=== PATIENT | male | born 1950 | race Caucasian/White ===

== ENCOUNTER 2020-04-23 13:49 | Day surgery (SDC) | payer MEDICARE, MEDICAID, SELFPAY ==
--- NOTE | 2020-04-23 12:53 | SUR.PREOP ---
Spoke with RN in IMU. Informed of Afib RVR status- RN looked back at records and patient converted at noon. Patricia Aldrich on the floor with RN- orders for Stat EKG. Dr Harding made aware.
--- NOTE | 2020-04-23 14:06 | P.PNAN_ITS ---
Anes - Initial Pre Proc Eval Procedure: Operation Date: 04/23/20 13:30 Proposed Procedures p Esophagogastroduodenoscopy - Warner Bailon MD Date/Time: 04/23/20 14:06 Surgeon: Warner Bailon MD Pre Op Diagnosis: Food Bolus Patient Data Age: 70 Gender: M Height: Weight: Allergies Allergy/AdvReac Type Severity Reaction Status Date / Time Penicillins Allergy Intermediate Rash Verified 04/23/20 14:06 Patient hx anesthesia problems: none Family hx anesthesia problems: none [facility] Past Medical History Medical History (Updated 04/23/20 @ 14:07 by Juanjo Harding MD) Gastroesophageal reflux disease Seizure Anes - Eval Final PreProcedure Day of Procedure 04/23/20 14:06 Patient weight: normal Heart: regular rate and rhythm Lungs: clear to auscultation and normal air movement Airway: Mallampati scale class II Neurological: alert and oriented Last oral intake: >/= 8 hours ASA classification: III Emergent: no Anesthetic plan: proceed Anesthesia type and monitoring: general GIVS and ETT Informed Consent: The patient's anesthetic plan and its attendant risks and benefits were discussed with the patient/family/POA. Questions were solicited and answers provided to the satisfaction of the patient/family/POA.
[2020-04-23 14:08] VITALS: BMI 20.4
[2020-04-23 14:11] VITALS: BP 154/85; PULSE 96; RESP 18; TEMP 36.9; O2SAT 96
[2020-04-23] MEDS: LACTATED RINGERS 1,000 ML 150 ML IV CONT (14:16)
--- NOTE | 2020-04-23 14:19 | WPDGICN ---
Assessment and Plan Assessment and plan (1) Food impaction of esophagus: Code(s): T18.128A - Food in esophagus causing other injury, initial encounter Status: Acute Assessment and Plan: will proceed with urgent EGD, more recommendations after egd (2) Gastroesophageal reflux disease: Code(s): K21.9 - Gastro-esophageal reflux disease without esophagitis Status: Acute Assessment and Plan: on pepcid and omeprazole at home (3) Seizure: Code(s): R56.9 - Unspecified convulsions Status: Acute Assessment and Plan: using dilantin, no recent episodes GI Consult Note Consult date/time: 04/23/20 14:19 Reason for consult: food bolus HPI: Venkatesh Frey is a 70 year old male who I met in [place] in 2017 when had dysphagia, EGD with ring that was dilated. He is here with food bolus after eating ham sandwich last night, still unable to swallow and spitting up salive. He went to [facility] and now is here to undergo EGD. Review of Systems Constitutional: Constitutional: Denies headache(s) and Denies weakness Eyes: Eyes: Denies blurry vision ENT: Reports Normal hearing present, Denies headache(s) and Denies neck pain Cardiovascular: Cardiovascular: Denies chest pain and Denies dyspnea Respiratory: Respiratory: Denies dyspnea Gastrointestinal: Gastrointestinal: Reports no additional gastrointestinal complaints Genitourinary: Genitourinary: Denies dysuria Musculoskeletal: Musculoskeletal: Denies neck pain Integumentary/Breasts: Skin/Breast: Denies dry skin Neurologic: Reports Normal hearing present, Denies headache(s) and Denies weakness Psychiatric: Psychiatric: Denies anxiety Endocrine: Endocrine: Denies change in body appearance Hematologic/Lymphatic: Hematologic/Lymphatic: Denies easy bleeding Allergic/Immunologic: Allergic/Immunologic: Denies urticaria PMFSH Past Medical History Medical History (Updated 04/23/20 @ 14:20 by Warner Bailon MD) Food impaction of esophagus Gastroesophageal reflux disease Seizure Meds Home Medications and Allergies Home Medications Medication Instructions Recorded Confirmed Type famotidine 40 mg PO DAILY 04/23/20 04/23/20 History linaclotide [Linzess] 72 mcg PO DAILY 04/23/20 04/23/20 History omeprazole 20 mg PO DAILY 04/23/20 04/23/20 History phenytoin sodium extended 100 mg PO DAILY 04/23/20 04/23/20 History Allergies Allergy/AdvReac Type Severity Reaction Status Date / Time Penicillins Allergy Intermediate Rash Verified 04/23/20 14:06 Vital Signs Vital Signs - 24 hr 04/23/20 14:11 Temperature 98.4 F Pulse Rate 96 Respiratory Rate 18 Blood Pressure 154/85 H Pulse Oximetry 96 Exam Const: General: comfortable and no acute distress HENMT: General nose exam: Normal nares present Eyes: General: appearance normal, both eyes and all related structures Neck: Neck: no JVD Resp: Auscultation: clear to auscultation bilaterally Cardio: Rate: regular rate Rhythm: regular rhythm GI: Inspection: non-distended GI Palp: Yes Soft to palpation Skin: General skin exam: normal color Neuro: General: gait normal Speech: normal speech Extrem: General: normal to inspection Psych: Mental Status: mental status grossly normal
[2020-04-23 14:34] VITALS: BP 103/66; PULSE 79; RESP 22; O2SAT 97
[2020-04-23 14:44] VITALS: BP 117/60; PULSE 80; RESP 18; O2SAT 96
[2020-04-23 14:54] VITALS: BP 136/76; PULSE 76; RESP 20; O2SAT 97
== END 2020-04-23 15:05 | disposition home or self-care (01) ==
PROVIDERS: PCP Family Medicine; Visit Provider Internal Medicine Gastroenterology
PROC: 0DJ08ZZ Inspection of Upper Intestinal Tract, Via Natural or Artificial Opening Endoscopic (ICD-10-PCS; CPT 43235; principal; 2020-04-23 13:30)
DX: T18.128A Food in esophagus causing other injury, initial encounter (principal); K22.2 Esophageal obstruction; K44.9 Diaphragmatic hernia without obstruction or gangrene; K21.9 Gastro-esophageal reflux disease without esophagitis; G40.909 Epilepsy, unspecified, not intractable, without status epilepticus
CPT/HCPCS: 43249; C1726; J2704; J7120

== ENCOUNTER 2020-05-27 01:10 | Day surgery (SDC) | payer MEDICARE, MEDICAID, SELFPAY ==
[2020-05-19 13:43] VITALS: BMI 22.0
--- NOTE | 2020-05-19 13:49 | PC.NURSE ---
PT VOICED CONCERNS ABOUT MAKING THE COVID SWAB APPOINTMENT. REITERATED TO PATIENT NUMEROUS TIMES THAT THE PROCEDURE WILL NOT BE ABLE TO BE COMPLETED IF COVID SWAB NOT COMPLETED. PT WANTS TO HAVE SWAB COMPLETED AT [facility]. REFERRED PATIENT TO DR TREVIZO OFFICE FOR ORDER.
--- NOTE | 2020-05-27 11:48 | PM.HPGS ---
History of Present Illness History of Present Illness Consent: Risks, benefits, and alternatives have been discussed and questions answered. Patient agrees to proceed with procedure. Chief complaint: Schatzki's Ring/ Dysphagia Narrative: Venkatesh Frey Jr. is a 70 year old male with history of food bolus last month due to a ring that was dilated Review of Systems Constitutional: Constitutional: Denies headache(s) and Denies weakness Eyes: Eyes: Denies blurry vision ENT: Reports Normal hearing present, Denies headache(s) and Denies neck pain Cardiovascular: Cardiovascular: Denies chest pain and Denies dyspnea Respiratory: Respiratory: Denies dyspnea Gastrointestinal: Gastrointestinal: Reports no additional gastrointestinal complaints Genitourinary: Genitourinary: Denies dysuria Musculoskeletal: Musculoskeletal: Denies neck pain Integumentary/Breasts: Skin/Breast: Denies dry skin Neurologic: Reports Normal hearing present, Denies headache(s) and Denies weakness Psychiatric: Psychiatric: Denies anxiety Endocrine: Endocrine: Denies change in body appearance Hematologic/Lymphatic: Hematologic/Lymphatic: Denies easy bleeding Allergic/Immunologic: Allergic/Immunologic: Denies urticaria PMFSH Past Medical History Medical History (Updated 05/27/20 @ 12:01 by Warner Bailon MD) Dysphagia Food impaction of esophagus Gastroesophageal reflux disease LLQ abdominal pain Seizure Meds Home Medications and Allergies Home Medications Medication Instructions Recorded Confirmed Type famotidine 40 mg PO DAILY 04/23/20 04/23/20 History linaclotide [Linzess] 72 mcg PO DAILY 04/23/20 04/23/20 History omeprazole 20 mg PO DAILY 04/23/20 04/23/20 History phenytoin sodium extended 100 mg PO DAILY 04/23/20 04/23/20 History Allergies Allergy/AdvReac Type Severity Reaction Status Date / Time Penicillins Allergy Intermediate Rash Verified 05/27/20 11:55 Exam Const: General: comfortable and no acute distress HENMT: General nose exam: Normal nares present Eyes: General: appearance normal, both eyes and all related structures Neck: Neck: no JVD Resp: Auscultation: clear to auscultation bilaterally Cardio: Rate: regular rate Rhythm: regular rhythm GI: Inspection: non-distended GI Palp: Yes Soft to palpation Skin: General skin exam: normal color Neuro: General: gait normal Speech: normal speech Extrem: General: normal to inspection Psych: Mental Status: mental status grossly normal Assessment and Plan Assessment and plan (1) Dysphagia: Code(s): R13.10 - Dysphagia, unspecified Status: Acute Assessment and Plan: will reassess again with egd to see if may require further dilation (2) Food impaction of esophagus: Code(s): T18.128A - Food in esophagus causing other injury, initial encounter Status: Acute (3) LLQ abdominal pain: Code(s): R10.32 - Left lower quadrant pain Status: Acute Assessment and Plan: he has been complaining of intermittent pain in llq recently, also constipation, he thinks that may have flare up of diverticulitis but denies fever, chills or blood in stools. He already had colonoscopy. Will give a trial of flagyl for 5 days
[2020-05-27 11:56] VITALS: BP 178/84; PULSE 76; RESP 18; TEMP 36.5; O2SAT 100; BMI 20.7
[2020-05-27] MEDS: LACTATED RINGERS 1,000 ML 150 ML IV CONT (12:03)
--- NOTE | 2020-05-27 12:03 | WPDANESEPPF ---
Anes - Initial Pre Proc Eval Procedure: Operation Date: 05/27/20 13:45 Proposed Procedures p Esophagogastroduodenoscopy - Warner Bailon MD Date/Time: 05/27/20 12:03 Surgeon: Warner Bailon MD Pre Op Diagnosis: Schatzki's Ring/ Dysphagia Patient Data Age: 70 Gender: M Height: 5 ft 5 in Weight: 56.7 kg Last Vital Signs Temp 97.7 F 05/27/20 11:56 Pulse 76 05/27/20 11:56 Resp 18 05/27/20 11:56 BP 178/84 H 05/27/20 11:56 Pulse Ox 100 05/27/20 11:56 Allergies Allergy/AdvReac Type Severity Reaction Status Date / Time Penicillins Allergy Intermediate Rash Verified 05/27/20 11:55 Home Medications Medication Instructions Recorded Confirmed Type famotidine 40 mg PO DAILY 04/23/20 04/23/20 History linaclotide [Linzess] 72 mcg PO DAILY 04/23/20 04/23/20 History omeprazole 20 mg PO DAILY 04/23/20 04/23/20 History phenytoin sodium extended 100 mg PO DAILY 04/23/20 04/23/20 History metronidazole 500 mg tablet 500 mg PO Q8H 5 Days #15 tablet 05/27/20 Rx Patient hx anesthesia problems: none Family hx anesthesia problems: none [facility] Past Medical History Medical History (Updated 05/27/20 @ 12:01 by Warner Bailon MD) Dysphagia Food impaction of esophagus Gastroesophageal reflux disease LLQ abdominal pain Seizure Anes - Eval Final PreProcedure Day of Procedure 05/27/20 12:03 Patient weight: normal Heart: regular rate and rhythm Lungs: clear to auscultation Airway: Mallampati scale class II Neurological: alert and oriented Last oral intake: >/= 8 hours ASA classification: III Emergent: no Anesthetic plan: proceed Anesthesia type and monitoring: general GIVS and standard monitoring Informed Consent: The patient's anesthetic plan and its attendant risks and benefits were discussed with the patient/family/POA. Questions were solicited and answers provided to the satisfaction of the patient/family/POA.
[2020-05-27 12:24] VITALS: BP 118/73; PULSE 70; RESP 17; O2SAT 96
[2020-05-27 12:34] VITALS: BP 122/80; PULSE 64; RESP 18; O2SAT 97
[2020-05-27 12:44] VITALS: BP 134/89; PULSE 71; RESP 18; O2SAT 99
== END 2020-05-27 13:04 | disposition home or self-care (01) ==
PROVIDERS: PCP Family Medicine; Visit Provider Internal Medicine Gastroenterology
PROC: 0DJ08ZZ Inspection of Upper Intestinal Tract, Via Natural or Artificial Opening Endoscopic (ICD-10-PCS; CPT 43235; principal; 2020-05-27 13:45)
DX: K22.2 Esophageal obstruction (principal); K44.9 Diaphragmatic hernia without obstruction or gangrene; T18.128A Food in esophagus causing other injury, initial encounter; X58.XXXA Exposure to other specified factors, initial encounter; K21.9 Gastro-esophageal reflux disease without esophagitis; F32.9 Major depressive disorder, single episode, unspecified
CPT/HCPCS: 43249; C1726; J2704; J7120

== ENCOUNTER 2023-10-12 01:29 | Day surgery (SDC) | payer MEDICARE, MEDICAID, SELFPAY ==
[2023-09-27 11:48] VITALS: BMI 22.0
--- NOTE | 2023-10-10 11:21 | SUR.PREOP ---
Patient called regarding upcoming procedure. Message left on pt's voicemail regarding appointment times.
[2023-10-12 12:30] VITALS: BP 155/79; PULSE 75; RESP 18; TEMP 36.3; O2SAT 100
[2023-10-12] MEDS: LACTATED RINGERS 1,000 ML 150 ML IV CONT (12:37)
--- NOTE | 2023-10-12 13:17 | P.PNAN_ITS ---
Anes - Initial Pre Proc Eval Procedure: Operation Date: 10/12/23 14:00 Proposed Procedures p Esophagogastroduodenoscopy - Warner Bailon MD Date/Time: 10/12/23 13:17 Surgeon: Warner Bailon MD Pre Op Diagnosis: Esophageal stricture Patient Data Age: 73 Gender: M Height: 1.65 m Weight: 57.7 kg Last Vital Signs Temp 97.3 F L 10/12/23 12:30 Pulse 75 10/12/23 12:30 Resp 18 10/12/23 12:30 BP 155/79 H 10/12/23 12:30 Pulse Ox 100 10/12/23 12:30 O2 Del Method Room Air 10/12/23 12:30 Allergies Allergy/AdvReac Type Severity Reaction Status Date / Time Penicillins Allergy Intermediate Rash Verified 10/12/23 12:28 fenoprofen [From Nalfon] Allergy Rash Verified 10/12/23 12:28 Home Medications Medication Instructions Recorded Confirmed Type famotidine 40 mg tablet 40 mg PO DAILY 04/23/20 10/12/23 History omeprazole 20 mg capsule,delayed 20 mg PO DAILY 04/23/20 10/12/23 History release phenytoin sodium extended 100 mg 100 mg PO DAILY 04/23/20 10/12/23 History capsule aspirin 81 mg capsule 81 mg PO DAILY 09/27/23 10/12/23 History olmesartan 20 mg tablet 20 mg PO DAILY 09/27/23 10/12/23 History Patient hx anesthesia problems: none Family hx anesthesia problems: none Results Review: All pre-operative results and documents have been reviewed as part of the pre- operative evaluation. [facility] Past Medical History Medical History (Updated 05/27/20 @ 12:01 by Warner Bailon MD) Dysphagia Food impaction of esophagus Gastroesophageal reflux disease LLQ abdominal pain Seizure Social History Social History Smoking status: Never smoker Alcohol intake: current Drinks per week: 1 Substance use type: does not use Living arrangements: alone Spiritual care concerns: No Anes - Eval Final PreProcedure Day of Procedure 10/12/23 13:17 Patient weight: normal Heart: regular rate and rhythm Lungs: clear to auscultation Airway: Mallampati scale Neurological: alert and oriented Last oral intake: >/= 8 hours ASA classification: III Emergent: no Anesthetic plan: proceed Anesthesia type and monitoring: general GIVS and standard monitoring Results Review: All pre-operative results and documents have been reviewed as part of the pre- operative evaluation. Informed Consent: The patient's anesthetic plan and its attendant risks and benefits were discussed with the patient/family/POA. Questions were solicited and answers provided to the satisfaction of the patient/family/POA.
--- NOTE | 2023-10-12 13:57 | PM.HPGS ---
History of Present Illness History of Present Illness Consent: Risks, benefits, and alternatives have been discussed and questions answered. Patient agrees to proceed with procedure. Chief complaint: Esophageal stricture Narrative: Venkatesh Frey Jr. is a 73 year old male with dysphagia again, last EGD 2019 with ring that was dilated with balloon up to 15 mm, using famotidine daiyl and omeprazole as needed. Review of Systems Constitutional: Constitutional: Denies headache(s) and Denies weakness Eyes: Eyes: Denies blurry vision ENT: Reports Normal hearing present, Denies headache(s) and Denies neck pain Cardiovascular: Cardiovascular: Denies chest pain and Denies dyspnea Respiratory: Respiratory: Denies dyspnea Gastrointestinal: Gastrointestinal: Reports no additional gastrointestinal complaints Genitourinary: Genitourinary: Denies dysuria Musculoskeletal: Musculoskeletal: Denies neck pain Integumentary/Breasts: Skin/Breast: Denies dry skin Neurologic: Reports Normal hearing present, Denies headache(s) and Denies weakness Psychiatric: Psychiatric: Denies anxiety Endocrine: Endocrine: Denies change in body appearance Hematologic/Lymphatic: Hematologic/Lymphatic: Denies easy bleeding Allergic/Immunologic: Allergic/Immunologic: Denies urticaria PMF Past Medical History Medical History (Updated 05/27/20 @ 12:01 by Warner Bailon MD) Dysphagia Food impaction of esophagus Gastroesophageal reflux disease LLQ abdominal pain Seizure Social History Social History Smoking status: Never smoker Alcohol intake: current Drinks per week: 1 Substance use type: does not use Living arrangements: alone Spiritual care concerns: No Meds Home Medications and Allergies Home Medications Medication Instructions Recorded Confirmed Type famotidine 40 mg tablet 40 mg PO DAILY 04/23/20 10/12/23 History omeprazole 20 mg capsule,delayed 20 mg PO DAILY 04/23/20 10/12/23 History release phenytoin sodium extended 100 mg 100 mg PO DAILY 04/23/20 10/12/23 History capsule aspirin 81 mg capsule 81 mg PO DAILY 09/27/23 10/12/23 History olmesartan 20 mg tablet 20 mg PO DAILY 09/27/23 10/12/23 History Allergies Allergy/AdvReac Type Severity Reaction Status Date / Time Penicillins Allergy Intermediate Rash Verified 10/12/23 12:28 fenoprofen [From Nalfon] Allergy Rash Verified 10/12/23 12:28 Vital Signs Vital Signs - 24 hr 10/12/23 12:30 Temperature 97.3 F L Pulse Rate 75 Respiratory Rate 18 Blood Pressure 155/79 H Pulse Oximetry 100 Oxygen Delivery Room Air Exam Const: General: comfortable and no acute distress HENMT: Face/Nose/Sinus: Normal nares present Eyes: General: appearance normal, both eyes and all related structures Neck: Neck: no JVD Resp: Auscultation: clear to auscultation bilaterally Cardio: Rate: regular rate Rhythm: regular rhythm GI: Inspection: non-distended GI Palp: Yes Soft to palpation Skin: General skin exam: normal color Neuro: General: gait normal Speech: normal speech Extrem: General: normal to inspection Psych: Mental Status: mental status grossly normal Assessment and Plan Assessment and plan (1) Dysphagia: Code(s): R13.10 - Dysphagia, unspecified Status: Acute Assessment and Plan: egd, probably will need dilatation again
[2023-10-12 14:11] VITALS: BP 80/52; PULSE 66; RESP 18; O2SAT 95
[2023-10-12 14:21] VITALS: BP 96/61; PULSE 75; RESP 20; O2SAT 98
[2023-10-12 14:31] VITALS: BP 130/75; PULSE 66; RESP 20; O2SAT 100
== END 2023-10-12 14:57 | disposition home or self-care (01) ==
PROVIDERS: PCP Family Medicine; Visit Provider Internal Medicine Gastroenterology
PROC: 0DJ08ZZ Inspection of Upper Intestinal Tract, Via Natural or Artificial Opening Endoscopic (ICD-10-PCS; CPT 43235; principal; 2023-10-12 14:00)
DX: K22.2 Esophageal obstruction (principal); K44.9 Diaphragmatic hernia without obstruction or gangrene; K21.9 Gastro-esophageal reflux disease without esophagitis; G40.909 Epilepsy, unspecified, not intractable, without status epilepticus; Z79.82 Long term (current) use of aspirin
CPT/HCPCS: 43249; C1726; J2704; J7120

== ENCOUNTER 2024-03-01 00:51 | Day surgery (SDC) | payer MEDICARE, MEDICAID, SELFPAY ==
[2024-02-10 14:39] VITALS: BMI 21.6
[2024-03-01 11:47] VITALS: BP 152/66; PULSE 66; RESP 18; TEMP 36.5; O2SAT 100
[2024-03-01] MEDS: LACTATED RINGERS 1,000 ML 150 ML IV CONT (12:07)
--- NOTE | 2024-03-01 12:11 | WPDANESEPPF ---
Anes - Initial Pre Proc Eval Procedure: Operation Date: 03/01/24 13:30 Proposed Procedures p Esophagogastroduodenoscopy - Warner Bailon MD Date/Time: 03/01/24 12:11 Surgeon: Warner Bailon MD Pre Op Diagnosis: Esophageal stricture Patient Data Age: 74 Gender: M Height: 1.65 m Weight: 55.6 kg Last Vital Signs Temp 97.7 F 03/01/24 11:47 Pulse 66 03/01/24 11:47 Resp 18 03/01/24 11:47 BP 152/66 H 03/01/24 11:47 Pulse Ox 100 03/01/24 11:47 O2 Del Method Room Air 03/01/24 11:47 Allergies Allergy/AdvReac Type Severity Reaction Status Date / Time Penicillins Allergy Intermediate Rash Verified 10/12/23 12:28 bee venom protein (honey bee) Allergy Anaphylaxis Verified 02/10/24 14:37 [bees] fenoprofen [From Nalfon] Allergy Rash Verified 10/12/23 12:28 Home Medications Medication Instructions Recorded Confirmed Type famotidine 40 mg tablet 40 mg PO DAILY 04/23/20 02/10/24 History omeprazole 20 mg capsule,delayed 20 mg PO DAILY PRN Heartburn 04/23/20 02/10/24 History release phenytoin sodium extended 100 mg 100 mg PO EVERY OTHER DAY 04/23/20 02/10/24 History capsule aspirin 81 mg capsule 81 mg PO DAILY 09/27/23 02/10/24 History olmesartan 20 mg tablet 20 mg PO DAILY 09/27/23 02/10/24 History Patient hx anesthesia problems: none Family hx anesthesia problems: none Results Review: All pre-operative results and documents have been reviewed as part of the pre-operative evaluation. [facility] Past Medical History Medical History (Updated 05/27/20 @ 12:01 by Warner Bailon MD) Dysphagia Food impaction of esophagus Gastroesophageal reflux disease LLQ abdominal pain Seizure Social History Social History Smoking status: Never smoker Smokeless tobacco user: chewing tobacco Alcohol intake: current Drinks per week: 1 Substance use type: does not use Living arrangements: with family Spiritual care concerns: No Anes - Eval Final PreProcedure Day of Procedure 03/01/24 12:11 Patient weight: normal Heart: regular rate and rhythm Lungs: clear to auscultation Airway: Mallampati scale class II Neurological: alert and oriented Last oral intake: >/= 8 hours ASA classification: III Emergent: no Anesthetic plan: proceed Anesthesia type and monitoring: general GIVS and standard monitoring Results Review: All pre-operative results and documents have been reviewed as part of the pre-operative evaluation. Informed Consent: The patient's anesthetic plan and its attendant risks and benefits were discussed with the patient/family/POA. Questions were solicited and answers provided to the satisfaction of the patient/family/POA.
--- NOTE | 2024-03-01 13:20 | PM.HPGS ---
History of Present Illness History of Present Illness Consent: Risks, benefits, and alternatives have been discussed and questions answered. Patient agrees to proceed with procedure. Chief complaint: Esophageal stricture Narrative: Venkatesh Frey Jr. is a 74 year old male with known history of esophageal stricture, last time dilated 10/2023 which helped, time to do another one. Review of Systems Review of Systems: All systems reviewed & are unremarkable except as noted in HPI and below PMFSH Past Medical History Medical History (Updated 03/01/24 @ 13:21 by Warner Bailon MD) Dysphagia Esophageal stricture Food impaction of esophagus Gastroesophageal reflux disease LLQ abdominal pain Seizure Social History Social History Smoking status: Never smoker Smokeless tobacco user: chewing tobacco Alcohol intake: current Drinks per week: 1 Substance use type: does not use Living arrangements: with family Spiritual care concerns: No Meds Home Medications and Allergies Home Medications Medication Instructions Recorded Confirmed Type famotidine 40 mg tablet 40 mg PO DAILY 04/23/20 02/10/24 History omeprazole 20 mg capsule,delayed 20 mg PO DAILY PRN Heartburn 04/23/20 02/10/24 History release phenytoin sodium extended 100 mg 100 mg PO EVERY OTHER DAY 04/23/20 02/10/24 History capsule aspirin 81 mg capsule 81 mg PO DAILY 09/27/23 02/10/24 History olmesartan 20 mg tablet 20 mg PO DAILY 09/27/23 02/10/24 History Allergies Allergy/AdvReac Type Severity Reaction Status Date / Time Penicillins Allergy Intermediate Rash Verified 10/12/23 12:28 bee venom protein (honey bee) Allergy Anaphylaxis Verified 02/10/24 14:37 [bees] fenoprofen [From Nalfon] Allergy Rash Verified 10/12/23 12:28 Vital Signs Vital Signs - 24 hr 03/01/24 11:47 Temperature 97.7 F Pulse Rate 66 Respiratory Rate 18 Blood Pressure 152/66 H Pulse Oximetry 100 Oxygen Delivery Room Air Exam Const: General: comfortable and no acute distress HENMT: Face/Nose/Sinus: Normal nares present Eyes: General: appearance normal, both eyes and all related structures Neck: Neck: no JVD Resp: Auscultation: clear to auscultation bilaterally Cardio: Rate: regular rate Rhythm: regular rhythm GI: Inspection: non-distended GI Palp: Yes Soft to palpation Skin: General skin exam: normal color Neuro: General: gait normal Speech: normal speech Extrem: General: normal to inspection Psych: Mental Status: mental status grossly normal Assessment and Plan Assessment and plan (1) Dysphagia: Code(s): R13.10 - Dysphagia, unspecified Status: Acute (2) Esophageal stricture: Code(s): K22.2 - Esophageal obstruction Status: Acute Assessment and Plan: egd, probably will need another dilation
[2024-03-01 13:31] VITALS: BP 115/62; PULSE 69; RESP 19; O2SAT 99
[2024-03-01 13:41] VITALS: BP 127/77; PULSE 70; RESP 22; O2SAT 97
[2024-03-01 13:51] VITALS: BP 148/70; PULSE 62; RESP 15; O2SAT 96
== END 2024-03-01 14:00 | disposition home or self-care (01) ==
PROVIDERS: PCP Family Medicine; Visit Provider Internal Medicine Gastroenterology
PROC: 0DJ08ZZ Inspection of Upper Intestinal Tract, Via Natural or Artificial Opening Endoscopic (ICD-10-PCS; CPT 43235; principal; 2024-03-01 13:30)
DX: K22.2 Esophageal obstruction (principal); K44.9 Diaphragmatic hernia without obstruction or gangrene; K21.9 Gastro-esophageal reflux disease without esophagitis; F17.220 Nicotine dependence, chewing tobacco, uncomplicated; Z79.82 Long term (current) use of aspirin
CPT/HCPCS: 43249; C1726; J2704; J7120

== ENCOUNTER 2024-06-27 02:37 | Day surgery (SDC) | payer MEDICARE, MEDICAID, SELFPAY ==
[2024-06-08 14:57] VITALS: BMI 21.6
[2024-06-27 11:25] VITALS: BP 133/70; PULSE 74; RESP 18; TEMP 36.2; O2SAT 99; BMI 20.7
[2024-06-27] MEDS: LACTATED RINGERS 1,000 ML 150 ML IV CONT (11:40)
--- NOTE | 2024-06-27 11:42 | PM.HPGS ---
History of Present Illness History of Present Illness Consent: Risks, benefits, and alternatives have been discussed and questions answered. Patient agrees to proceed with procedure. Chief complaint: esophageal obstruction Narrative: Venkatesh Frey Jr. is a 74 year old male with known history of esophageal stricture, last time dilated 02/2024 which helped, time to do another one. Review of Systems Review of Systems: All systems reviewed & are unremarkable except as noted in HPI and below PMFSH Past Medical History Medical History (Updated 03/01/24 @ 13:21 by Warner Bailon MD) Dysphagia Esophageal stricture Food impaction of esophagus Gastroesophageal reflux disease LLQ abdominal pain Seizure Social History Social History Smoking status: Never smoker Smokeless tobacco user: chewing tobacco Alcohol intake: current Drinks per week: 1 Substance use: never Substance use type: does not use Living arrangements: with family Spiritual care concerns: No Meds Home Medications and Allergies Home Medications Medication Instructions Recorded Confirmed Type famotidine 40 mg tablet 40 mg PO DAILY 04/23/20 06/08/24 History omeprazole 20 mg capsule,delayed 20 mg PO DAILY PRN Heartburn 04/23/20 06/08/24 History release phenytoin sodium extended 100 mg 100 mg PO EVERY OTHER DAY 04/23/20 06/08/24 History capsule aspirin 81 mg capsule 81 mg PO DAILY 09/27/23 06/08/24 History olmesartan 20 mg tablet 20 mg PO DAILY 09/27/23 06/08/24 History Allergies Allergy/AdvReac Type Severity Reaction Status Date / Time Penicillins Allergy Intermediate Rash Verified 06/27/24 11:29 bee venom protein (honey bee) Allergy Anaphylaxis Verified 06/27/24 11:29 [bees] fenoprofen [From Nalfon] Allergy Rash Verified 06/27/24 11:29 Vital Signs Vital Signs - 24 hr 06/27/24 11:25 Temperature 97.1 F L Pulse Rate 74 Respiratory Rate 18 Blood Pressure 133/70 Pulse Oximetry 99 Oxygen Delivery Room Air Exam Const: General: comfortable and no acute distress HENMT: Face/Nose/Sinus: Normal nares present Eyes: General: appearance normal, both eyes and all related structures Neck: Neck: no JVD Resp: Auscultation: clear to auscultation bilaterally Cardio: Rate: regular rate Rhythm: regular rhythm GI: Inspection: non-distended GI Palp: Yes Soft to palpation Skin: General skin exam: normal color Neuro: General: gait normal Speech: normal speech Extrem: General: normal to inspection Psych: Mental Status: mental status grossly normal Assessment and Plan Assessment and plan (1) Esophageal stricture: Code(s): K22.2 - Esophageal obstruction Status: Acute Assessment and Plan: egd with dilatation
--- NOTE | 2024-06-27 11:44 | WPDANESEPPF ---
Anes - Initial Pre Proc Eval Procedure: Operation Date: 06/27/24 13:30 Proposed Procedures p Esophagogastroduodenoscopy - Warner Bailon MD Date/Time: 06/27/24 11:44 Surgeon: Warner Bailon MD Pre Op Diagnosis: esophageal obstruction Patient Data Age: 74 Gender: M Height: 1.65 m Weight: 56.5 kg Last Vital Signs Temp 97.1 F L 06/27/24 11:25 Pulse 74 06/27/24 11:25 Resp 18 06/27/24 11:25 BP 133/70 06/27/24 11:25 Pulse Ox 99 06/27/24 11:25 O2 Del Method Room Air 06/27/24 11:25 Allergies Allergy/AdvReac Type Severity Reaction Status Date / Time Penicillins Allergy Intermediate Rash Verified 06/27/24 11:29 bee venom protein (honey bee) Allergy Anaphylaxis Verified 06/27/24 11:29 [bees] fenoprofen [From Nalfon] Allergy Rash Verified 06/27/24 11:29 Home Medications Medication Instructions Recorded Confirmed Type famotidine 40 mg tablet 40 mg PO DAILY 04/23/20 06/08/24 History omeprazole 20 mg capsule,delayed 20 mg PO DAILY PRN Heartburn 04/23/20 06/08/24 History release phenytoin sodium extended 100 mg 100 mg PO EVERY OTHER DAY 04/23/20 06/08/24 History capsule aspirin 81 mg capsule 81 mg PO DAILY 09/27/23 06/08/24 History olmesartan 20 mg tablet 20 mg PO DAILY 09/27/23 06/08/24 History Patient hx anesthesia problems: none Family hx anesthesia problems: none Results Review: All pre-operative results and documents have been reviewed as part of the pre-operative evaluation. [facility] Past Medical History Medical History Dysphagia Esophageal stricture Food impaction of esophagus Gastroesophageal reflux disease LLQ abdominal pain Seizure Social History Social History Smoking status: Never smoker Smokeless tobacco user: chewing tobacco Alcohol intake: current Drinks per week: 1 Substance use: never Substance use type: does not use Living arrangements: with family Spiritual care concerns: No Anes - Eval Final PreProcedure Day of Procedure 06/27/24 11:44 Patient weight: normal Heart: regular rate and rhythm Lungs: clear to auscultation Airway: Mallampati scale Neurological: alert and oriented Last oral intake: >/= 8 hours ASA classification: III Emergent: no Anesthetic plan: proceed Anesthesia type and monitoring: general GIVS and standard monitoring Results Review: All pre-operative results and documents have been reviewed as part of the pre-operative evaluation. hx of esophageal strictures. Informed Consent: The patient's anesthetic plan and its attendant risks and benefits were discussed with the patient/family/POA. Questions were solicited and answers provided to the satisfaction of the patient/family/POA.
[2024-06-27 11:58] VITALS: BP 83/51; PULSE 63; RESP 18; O2SAT 97
[2024-06-27 12:08] VITALS: BP 104/62; PULSE 61; RESP 17; O2SAT 98
[2024-06-27 12:18] VITALS: BP 110/63; PULSE 59; RESP 13; O2SAT 99
== END 2024-06-27 12:34 | disposition home or self-care (01) ==
PROVIDERS: PCP Family Medicine; Visit Provider Internal Medicine Gastroenterology
PROC: 0DJ08ZZ Inspection of Upper Intestinal Tract, Via Natural or Artificial Opening Endoscopic (ICD-10-PCS; CPT 43235; principal; 2024-06-27 13:30)
DX: K22.2 Esophageal obstruction (principal); K44.9 Diaphragmatic hernia without obstruction or gangrene; K21.9 Gastro-esophageal reflux disease without esophagitis; G40.909 Epilepsy, unspecified, not intractable, without status epilepticus; F17.220 Nicotine dependence, chewing tobacco, uncomplicated
CPT/HCPCS: 43249; C1726; J2001; J2371; J2704; J7120

== ENCOUNTER 2024-12-25 01:20 | Day surgery (SDC) | payer MEDICARE, MEDICAID, SELFPAY ==
[2024-12-13 13:11] VITALS: BMI 21.6
--- OUTSIDE RECORDS SUMMARY | 2024-12-25 01:24 | XMS_ITS | Clinical Summary ---
Author Organization [facility] Address [address] [place] [address] Phone Care Team Providers Care Supervisor Opening And Picking Name Role Phone Unavailable Unavailable Unavailable Reason for Visit and Chief Complaint * PHONE CALL Problems Includes: Problems addressed during this encounter and other active Problems All Visits Onset Date Resolved Date Provider Condition S tatus Epilepsy, unsp, not intractable, without status epilepticus 11/25/2015 TEMO A CRANCER D.O. Active Last Documented On 6 9:14AM ; [facility] Gastro-esophageal reflux dis ease without esophagitis 11/25/2015 TEMO A CRANCER D.O. Active Last Documented On 6 9:14AM ; [facility] Essential (primary) hypertension 11/25/[address] A CRANCER D.O. Active Last Documented On 6 9:14AM ; [facility] Pure hypercholesterolemia 11/06/2015 TEMO A C RANCER D.O. Active Last Documented On 6 11:15AM ; [facility] ESOPHAGEAL REFLUX 06/24/2014 TEMO A CRANCER D .O. Active Last Documented On 4 2:06PM ; [facility] HYPERTENSION NOS 06/24/2014 TEMO A CRANCER D. O. Active Last Documented On 4 2:06PM ; [facility] Black Or Tarry Stools (Melena) 12/13/2011 SERVANDO BRANHAM DO Active Last Documented On 2 5:43PM ; [facility] Note: Resolved Assessment of Constipation 12/06/2011 SERVANDO GLEZ DO Active Last Documented On 2 4:54PM ; [facility] Note: Unchanged Bright Red Blood Per Rectum 12/06/2011 SERVANDORubina CRUZ Active Last Documented On 2 4:54PM ; [facility] Note: Unchanged Plan of Treatment No Plan of Treatment Recorded Assessments Includes: Assessments from this encounter No Assessments Recorded Medical Equipment - Implanted Devices Includes: Current Devices No Medical Equipment Recorded Medications Includes: Medications discussed during this encounter and other current Medications New / Renewed during this visit TEMO CHAVEZ D.O. on 01/23/2016 PredniSONE 10 MG Tablet Provider: WALKER CHAVEZ D.O. 6 day supply: 12 tablet, 0 refills Diagnosis: 3 po qd x 2 days, 2 po qd x 2 days, 1 po qd x 2 days Pharmacy: [facility] [address], [phone] - Last Documented On 01/23/2016 12:04PM By ALDO HILLS ; [facility] Albuterol Sulfate (2.5 MG/3ML) 0.083% Nebulization solution Provider: TEMO Woodruff 30 day supply: 2 box, 0 refills Diagnosis: Other pneumonia, unspecified organism as directed USE VIA NEBULIZER QID PRN Pharmacy: Loy[facility]use [address], [phone] - Last Documented On 01/23/2016 12:04PM By ALDO HILLS ; [facility] ProAir HFA 108 (90 Base) MCG/ACT Aerosol Solution Provider: TEMO Higginbotham D.O. 30 day supply: 1 inhaler, 0 refills Diagnosis: Other pneumonia, unspecified organism ONE PUFF QID PRN Pharmacy: Loyda meier [address], [phone] - Last Documented On 01/23/2016 12:04PM By ALDO HILLS ; [facility] Levaquin 500 MG Tablet Provider: PA CHAVEZ D.O. 4 day supply: 4 tablet, 0 refills Diagnosis: Other pneumonia, unspecified organism One tablet daily Pharmacy: L[facility]da [facility]ier [address], [phone] - Last Documented On 01/27/2016 2:58PM By BAY HILLS ; [facility] Current Medications (continue as prescribed) Flonase Allergy Relief 50 MCG/ACT Suspension 01/27/2016 Provider: TEMO Woodruff Diagnosis: Allergic rhiniti s, unspecified 2 sprays each nostril once daily Last Documented On 01/27/2016 3:36PM By BAY HILLS ; [facility] Loratadine 10 MG OR TABS 06/24/2014 Provider: Diagnosis: Last Documented On 06/24/2014 2:04PM By B[place] HILLS ; [facility] EpiPen 2-Twan 0.3 MG/0.3ML IJ CORTNEY 04/15/2014 Provide r: MELISSA EMERY MD Diagnosis: Last Documented On 08/05/2015 10:33AM By B[place] HILLS ; [facility] Medications Administered Includes: Administered Medications from this encounter No Administered Medications Recorded Results Includes: Results discussed during this encounter No Results Recorded For Specified Dates History of Present Illness Includes: History of Present Illness from this encounter No History of Present Illness Recorded Social History No Social History Recorded - Smoking Status Unknown Medical History Includes: Medical History addressed during this encounter No Medical History Recorded Family History Includes: Family History addressed during this encounter No Family History Recorded Review of Systems Includes: Review of Systems from this encounter No Review of Systems Recorded Mental Status Includes: Mental Status from this encounter No Mental Status Recorded Functional Status Includes: Functional Status from this encounter No Functional Status Recorded Physical Exam Includes: Physical Exam from this encounter No Physical Exam Recorded Allergies Includes: Active Allergies Substance Type Reaction Onset Date Resolved Date Statu s Penicillin V Potassium Allergy Skin Rash es / Eruption of skin, Hives / Urticaria 12/06/2011 Active Last Documented On 6 3:00PM ; [facility] Nalfon Allergy 12/06/2011 Active Last Documented On 6 3:00PM ; [facility] Lisinopril Allergy BAD DREAMS 12/06/2011 Active Last Documented On 6 3:00PM ; [facility] BEES Allergy 06/24/2014 Active Last Documented On 6 3:00PM ; [facility] Azithromycin Dihydrate Allergy Nausea, V omiting, Diarrhea / Diarrheal disorder 12/06/2011 Active Last Documented On 6 3:00PM ; [facility] Encounters Encounter Provider Location Date Check-In Time Check-Out Time Diagnosis * PHONE CALL TEMO CHAVEZ D.O. 01/23/2016 11:51AM 11:59PM Clinical Notes Includes: Clinical Notes from this encounter No Clinical Notes Recorded
--- OUTSIDE RECORDS SUMMARY | 2024-12-25 01:24 | XMS_ITS ---
Care Plan - [facility] Created on: December 25, 2024 LA OLVERA JR : 1950 Sex: Male Author Organization [facility] Address [address] [place] [address] Phone Care Team Providers Care Founder And President Name Role Phone Unavailable Unavailable Unavailable
--- OUTSIDE RECORDS SUMMARY | 2024-12-25 01:24 | XMS_ITS ---
Author Organization [employer] Address [address] [place] [address] Care Team Providers Care Doctor Chiropractic Name Role Phone Benny Reyes Primary Care Provider LA Freedman Unavailable [phone] REASON FOR VISIT Palliation Medications Medication SIG (Take, Route, Frequency, Duration) Notes Start Date End Date Status Ciclopirox 8 % 1 application Externally Once a day Active Ciclopirox Olamine 0.77 % APPLY TO TOENAILS ONCE DAILY. for 30 Active Ciclopirox 8 % 1 application Externally Once a day May switch to a 7.7% solution, option not on software 07/13/2024 Active Gabapentin 100 for -2 *Pick strength-f orm from [employer] for eRX* 05/15/2021 Active Ciclopirox 8 % 1 application Externally Once a day 10/25/2023 Active Lidocaine 4 % for -2 05/21/2021 Activ e Ciclopirox 8 % External for -2 01/25/2022 Active Lidocaine-Prilocain e 2.5-2.5 % External for -2 05/18/2021 Active Jublia 10 % External for -2 11/30/2021 A ctive Dilantin for -2 *Pick strength-f orm from [employer] for eRX* 11/06/2019 Active Lidocaine 5 for -2 *Pick strength-f orm from [employer] for eRX* 10/02/2019 Active DULOXETINE 20 for -2 *Reorder from [employer] for eRx and Interaction Alerts* 05/14/2021 Active Vital Signs Blood pressure systolic 127 mm Hg 07/13/20 24 Blood pressure diastolic 73 mm Hg 024 Heart Rate 69 /min 07/13/2024 Height 65 in 07/13/2024 Weight 128 lbs 07/13/2024 BMI 21.3 kg/m2 07/13/2024 Height-cm 165.1 cm 07/13/2024 Weight-kg 58.06 kg 07/13/2024 Encounters Encounter Location Date Provider Diagnosis [facility] [address] [place] [address] 07/13/2024 LA CARRILLO Tinea unguium B35.1 and Other specified peripheral vascular diseases I73.89 Assessments Encounter Date Diagnosis (ICD Code) Assessment Notes Treatment Notes Treatment Clinical Notes Section Notes 07/13/2024 Tinea unguium (ICD-10 - B35.1) 07/13/2024 Other specified peripheral vascular diseases (ICD-10 - I73.89) We discussed preventative foot care. We discussed preventative foot hygiene. We instructed the patient on how to care for their feet, and to contact the office if any wounds develop, or signs of infection arise. The nails were debrided of all fungal material and debris. Debridement included a reduction in bulk of the nail by use of a sharp fingernail sculpturer and/or rotary instrument. Reason for debridement include relief of pain, treatment of infection, temporary removal of an anatomic deformity such as onychauxis or onychocryptosis, exposure of subungual conditions for the purpose of treatment as well as diagnosis, and/or as a prophylactic measure to prevent further problems, such as subungual ulceration in an insensate patient with onychauxis. Antiseptic was applied. Debrided 10 nails. Plan Of Treatment Medication Medication Name Sig Start Date Stop Date Notes Ciclopirox 8 % 1 application Senior Director ally Once a day 07/13/2024 May switch to a 7.7% solution, option not on software Treatment Notes Assessment Notes Other specified peripheral v ascular diseases We discussed preventative foot care. We discussed preventative foot hygiene. We instructed the patient on how to care for their feet, and to contact the office if any wounds develop, or signs of infection arise. The nails were debrided of all fungal material and debris. Debridement included a reduction in bulk of the nail by use of a sharp fingernail sculpturer and/or rotary instrument. Reason for debridement include relief of pain, treatment of infection, temporary removal of an anatomic deformity such as onychauxis or onychocryptosis, exposure of subungual conditions for the purpose of treatment as well as diagnosis, and/or as a prophylactic measure to prevent further problems, such as subungual ulceration in an insensate patient with onychauxis. Antiseptic was applied. Debrided 10 nails. Next Appt Details Follow Up: 2 Months, Reason: PVD Provider Name:LA TUBBS, 03/11/2025 02:00:00 PM, [address] [place], [address], Progress Notes * LA OLVERA JRDOB:[birth year] (74 yo M)Acc No.[id number]:07/13/2024 Patient: Chalo LA MATHEW JR Provider: Cricket Carrillo DPM :1950 A ge:74 Y S ex:Male Date:07/13/2024 Address:[address] [place], [place] [id number] Pcp:Benny Reyes Subjective: * Chief Complaints: * P alliation * HPI: N ails: The patient relates t o having difficulty trimming their nails, that all of their nails are thickened, that all of their nails are discolored. * ROS: G eneral / Constitutional: Patient denies c hills, fatigue, fever, headache. ? E NT: Patient denies s ore throat, sinus pain. R espiratory: Patient denies c ough, chest pain, shortness of breath.? C ardiovascular: Patient denies p alpitations, chest pain with exertion.? G astrointestinal: Patient denies a bdominal pain, constipation, diarrhea, vomiting, nausea. * Medical History: * Surgical History: * Hospitalization/Major Diagno stic Procedure: * Medications: T akingLidocaine 5 , Notes to Pharmacist: *Pick strength-form from [employer] for eRX*DULOXETINE 20 , Notes to Pharmacist: *Reorder from [employer] for eRx and Interaction Alerts*Lidocaine 4 % Cream Ciclopirox 8 % Solution External Lidocaine-Prilocaine 2.5-2.5 % Cream External Jublia 10 % Solution External Dilantin , Notes to Pharmacist: *[facility]*Gabapentin 100 , Notes to Pharmacist: *[facility] from [facility] for [facility]*Ciclopirox 8 % Solution 1 application Externally Once a day Ciclopirox 8 % Solution 1 application Externally Once a day Ciclopirox Olamine 0.77 % Suspension APPLY TO TOENAILS ONCE DAILY. Taking Lidocaine 5 , Notes to Pharmacist: *[facility] from [facility] for [facility]*Taking DULOXETINE 20 , Notes to Pharmacist: *Reorder from [facility] for eRx and Interaction Alerts*Taking Lidocaine 4 % Cream Taking Ciclopirox 8 % Solution External Taking Lidocaine-Prilocaine 2.5-2.5 % Cream External Taking Jublia 10 % Solution External Taking Dilantin , Notes to Pharmacist: *Pick strength-form from [facility] for eRX*Taking Gabapentin 100 , Notes to Pharmacist: *Pick strength- form from [facility] for eRX*Taking Ciclopirox 8 % Solution 1 application Externally Once a day Taking Ciclopirox 8 % Solution 1 application Externally Once a day Taking Ciclopirox Olamine 0.77 % Suspension APPLY TO TOENAILS ONCE DAILY. Objective: * Vitals: H t: 65 in, Wt:128lbs, BP:127/73mm Hg, HR:69/min, BMI:21.3Index, Wt-k.06 kg, Ht-cm: 165.1 cm, Body Surface Area: 1.63. * Examination: D ermatologic: Skin findings: b ilateral, cool and dry, no open ulcerations or interdigital macerations. Nail pathology: d igits 1-5, bilateral, discolored, thickened, with onychodystrophy, with subungual debris. V ascular: Dorsalis pedis pulse: 1 /4, bilateral. Posterior tibial pulse: 0 /4, bilateral. Capillary refill: s lightly delayed, bilaterally. ? N eurologic: Gross sensation i ntact. C lass Findings: Class B findings (Q8) A bsent posterior tibial pulse right, Absent posterior tibial pulse left, Hair decreased or absent, Nail thickening, Skin thin or shiny.? M usculoskeletal: Foot morphology: n ormal. Joint range of motion: b ilateral, ankle, with decreased range of motion. Pain elicited with palpation of: n o noted pain on palpation. Pain elicited with range of motion: n o noted pain with range of motion. Assessment: * Assessment: 1. O ther specified peripheral vascular diseases - I73.89 (Primary) 2 . T inea unguium - B35.1 Plan: * Treatment: 2. T inea unguium Start Ciclopirox Solution, 8 %, 1 application, Externally, Once a day, 30 gram, Refills 3, Notes to Pharmacist: May switch to a 7.7% solution, option not on software. * Procedure Codes: 1 1721 DEBRIDE NAIL, 6 OR MORE, Modifiers: Q8 * Follow Up: 2 Months (Reason: PVD) * Billing Information: * Visit Code: * Procedure Codes: 56501 DEBRIDE NAIL, 6 OR MORE. Modifiers: Q8 * Sign off status: Completed true * Provider: Cricket Carrillo DPM Date: Generated for Aurelia guidry/Lillian/Inder on: 0 12/25/2024 01:24 AM CDT History and Physical Notes * HPI (History of Present Illness) Category Sub-Category Detail Notes Category Not es Nails The patient relates to having di fficulty trimming their nails, that all of their nails are thickened, that all of their nails are discolored Examination Category Sub-Category Detail Notes Category Not es Dermatologic Skin findings: bilateral, cool and dry, no open ulcerations or interdigital macerations Nail pathology: digits 1-5, bilatera l, discolored, thickened, with onychodystrophy, with subungual debris Neurologic Gross sensation intact Musculoskeletal Foot morphology: normal Joint range of motion: bilateral, ankle, with decreased range of motion Pain elicited with palpation of: no note d pain on palpation Pain elicited with range of motion: no n oted pain with range of motion Vascular Dorsalis pedis pulse: 1/4, bilateral Capillary refill: slightly delayed, bi laterally Posterior tibial pulse: 0/4, bilateral Class Findings Class B findings (Q8) Absent pos terior tibial pulse right, Absent posterior tibial pulse left, Hair decreased or absent, Nail thickening, Skin thin or shiny
--- OUTSIDE RECORDS SUMMARY | 2024-12-25 01:24 | XMS_ITS | Patient Health Record ---
Author Organization [employer] Address [address] [place] [address] Care Team Providers Care Toe Stripper Name Role Phone Benny Reyes Primary Care Provider LA Freedman Unavailable [phone] Reason For Referral No Information Medications Medication SIG (Take, Route, Frequency, Duration) Notes Start Date End Date Status Ciclopirox 8 % 1 application Externally Once a day Active Ciclopirox 8 % 1 application Externally Once a day 10/25/2023 Active Gabapentin 100 for -2 *Pick strength-f orm from [facility] for eRX* 05/15/2021 Active Dilantin for -2 *Pick strength-f orm from [facility] for eRX* 11/06/2019 Active Jublia 10 % External for -2 11/30/2021 A ctive Lidocaine-Prilocain e 2.5-2.5 % External for -2 05/18/2021 Active Ciclopirox 8 % External for -2 01/25/2022 Active Lidocaine 4 % for -2 05/21/2021 Activ e DULOXETINE 20 for -2 *Reorder from [facility] for eRx and Interaction Alerts* 05/14/2021 Active Lidocaine 5 for -2 *[facility]* 10/02/2019 Active Ciclopirox Olamine 0.77 % APPLY SUSPENSION EXTERNALLY ONCE DAILY for 30 Active Problems Problem Type SNOMED Code ICD Code Onset Dates Problem Status W/U Status Risk Notes Problem Tinea unguium (983830078) Tinea unguium (B35.1) 3 Active confirmed Problem Tarsal tunnel syndrome (66435786) Tarsal tunnel syndrome, right lower limb (G57.51) 2 Active confirmed Problem Tarsal tunnel syndrome (32009673) Tarsal tunnel syndrome, left lower limb (G57.52) 2 Active confirmed Problem Disorder of the peripheral nervous system (07236852) Other disorders of peripheral nervous system (G64) 9 Active confirmed Problem Peripheral vascular disease (224689175) Other specified peripheral vascular diseases (I73.89) 9 Active confirmed Problem Callosity (196795711) Corns and callosities (L84) 3 Active confirmed Problem Plantar fascial fibromatosis (36136329) Plantar fascial fibromatosis (M72.2) 2 Active confirmed Vital Signs Heart Rate 74 /min 12/14/2024 Respiratory Rate 16 /min 04/23/2024 Height-cm 165.1 cm 12/14/2024 Blood pressure diastolic 79 mm Hg 12/14/2024 Weight-kg 58.97 kg 12/14/2024 Height 65 in 12/14/2024 Blood pressure systolic 126 mm Hg 12/14/2024 Weight 130 lbs 12/14/2024 BMI 21.63 kg/m2 12/14/2024 Encounters Encounter Location Date Provider Diagnosis [facility] [id number] [place] [phone] 01/09/2024 LA COCKAYNE Tinea unguium B35.1 and Other specified peripheral vascular diseases I73.89 [facility] [id number] [place] [phone] 04/23/2024 LA COCKAYNE Tinea unguium B35.1 and Other specified peripheral vascular diseases I73.89 [facility] [address] [place] [address] 07/13/2024 LA COCKAYNE Tinea unguium B35.1 and Other specified peripheral vascular diseases I73.89 [facility] [id number] [place] [phone] 09/24/2024 LA COCKAYNE Tinea unguium B35.1 and Other specified peripheral vascular diseases I73.89 [facility] [address] [place] [address] 12/14/2024 LA COCKAYNE Tinea unguium B35.1 and Other specified peripheral vascular diseases I73.89 [facility] [address] [place] [address] 02/13/2024 LA CARRILLO Assessments Encounter Date Diagnosis (ICD Code) Assessment Notes Treatment Notes Treatment Clinical Notes Section Notes 01/09/2024 Tinea unguium (ICD-10 - B35.1) 04/23/2024 Tinea unguium (ICD-10 - B35.1) 07/13/2024 Tinea unguium (ICD-10 - B35.1) 09/24/2024 Tinea unguium (ICD-10 - B35.1) 12/14/2024 Tinea unguium (ICD-10 - B35.1) 12/14/2024 Other specified peripheral vascular diseases (ICD-10 - [...] the nail by use of a sharp nail maker and/or rotary instrument. Reason for debridement include relief of pain, treatment of infection, temporary removal of an anatomic deformity such as onychauxis or onychocryptosis, exposure of subungual conditions for the purpose of treatment as well as diagnosis, and/or as a prophylactic measure to prevent further problems, such as subungual ulceration in an insensate patient with onychauxis. Antiseptic was applied. Debrided 10 nails. 09/24/2024 Other specified peripheral vascular diseases (ICD-10 - [...] the nail by use of a sharp nail maker and/or rotary instrument. Reason for debridement include relief of pain, treatment of infection, temporary removal of an anatomic deformity such as onychauxis or onychocryptosis, exposure of subungual conditions for the purpose of treatment as well as diagnosis, and/or as a prophylactic measure to prevent further problems, such as subungual ulceration in an insensate patient with onychauxis. Antiseptic was applied. Debrided 10 nails. 07/13/2024 Other specified peripheral vascular diseases (ICD-10 [...] the nail by use of a sharp nail maker and/or rotary instrument. Reason for debridement include relief of pain, treatment of infection, temporary removal of an anatomic deformity such as onychauxis or onychocryptosis, exposure of subungual conditions for the purpose of treatment as well as diagnosis, and/or as a prophylactic measure to prevent further problems, such as subungual ulceration in an insensate patient with onychauxis. Antiseptic was applied. Debrided 10 nails. 04/23/2024 Other specified peripheral vascular diseases (ICD-10 - [...] the nail by use of a sharp nail maker and/or rotary instrument. Reason for debridement include relief of pain, treatment of infection, temporary removal of an anatomic deformity such as onychauxis or onychocryptosis, exposure of subungual conditions for the purpose of treatment as well as diagnosis, and/or as a prophylactic measure to prevent further problems, such as subungual ulceration in an insensate patient with onychauxis. Antiseptic was applied. Debrided 10 nails. 01/09/2024 Other specified peripheral vascular diseases (ICD-10 - [...] the nail by use of a sharp nail maker and/or rotary instrument. Reason for debridement include [...] applied. Debrided 10 nails. Plan Of Treatment Next Appt Details Provider Name:LA TUBBS, 03/11/2025 02:00:00 PM, [address] [place], [address], Insurance Providers Payer Name Payer Address Payer Phone Subscriber Number Group Number Insured Name Patient Relationship to Insured Coverage Start Date Coverage End Date [place] [address] [place], [place] [id number] [phone] [id number] LA OLVERA Self - patient is the insured [place] [employer] [place] [address] [address] [place] [address] [phone] [id number] LA OLVERA Self - patient is the insured
--- OUTSIDE RECORDS SUMMARY | 2024-12-25 01:24 | XMS_ITS | Clinical Summary ---
Author Organization [facility] Address [address] [place] [address] Phone Care Team Providers Care Senior Internet Sales Consultant Name Role Phone Unavailable Unavailable Unavailable Reason for Visit and Chief Complaint visit for: THE PATIENT IS HERE TO DISCUSS HIS CHEST CONGESTION AND NASAL CONGESTION - The Chief Complaint is: RECHECK - PNEUMONIA, CONTINUES TO COMPLAIN OF CHEST CONGESTION Problems Includes: Problems addressed during this encounter and other active Problems All Visits Onset Date Resolved Date Provider Condition S tatus Epilepsy, unsp, not intractable, without status epilepticus 11/25/2015 TEMO A CRANCER D.O. Active Last Documented On 6 9:14AM ; [facility] Gastro-esophageal reflux dis ease without esophagitis 11/25/2015 TEMO A CRANCER D.O. Active Last Documented On 6 9:14AM ; [facility] Essential (primary) hypertension 11/25/[address] A CRANCER D.O. Active Last Documented On 6 9:14AM ; [facility] Pure hypercholesterolemia 11/06/2015 TEMO A C RANCER D.O. Active Last Documented On 6 11:15AM ; [facility] ESOPHAGEAL REFLUX 06/24/2014 TEMO A CRANCER D .O. Active Last Documented On 4 2:06PM ; [facility] HYPERTENSION NOS 06/24/2014 TEMO A CRANCER D. O. Active Last Documented On 4 2:06PM ; [facility] Black Or Tarry Stools (Melena) 12/13/2011 SERVANDO BRANHAM DO Active Last Documented On 2 5:43PM ; [facility] Note: Resolved Assessment of Constipation 12/06/2011 SERVANDO GLEZ DO Active Last Documented On 2 4:54PM ; [facility] Note: Unchanged Bright Red Blood Per Rectum 12/06/2011 SERVANDO BROWER ANTHONY DO Active Last Documented On 2 4:54PM ; [facility] Note: Unchanged Plan of Treatment Pending Tests Order Diagnosis Results Due Ordering P rovider X-ray - IN OFFICE XRAYS Chest, 2 Views Cough 01/30/16 TEMO Billingsley CRANCER D.O. Last Documented On 6 12:39PM ; [facility] Outside Procedures 6-MINUTE WALK STUDY Emphysema , unspecified 02/26/16 TEMO A CRANCER D.O. Last Documented On 6 2:21PM ; [facility] Outside Procedures PFT Emphysema, unspecified 02/25 TEMO A CRANCER D.O. Last Documented On 6 2:21PM ; [facility] Outside Procedures OVERNIGHT OXIMETRY Emphysema, unspecified 02/26/16 TEMO A NAMANCER D.O. Last Documented On 6 2:21PM ; [facility] Assessments Includes: Assessments from this encounter Findings - Chronic obstructive pulmonary disease LIKELY DIAGNOSIS - Last Documented On 02/01/2016 12:39PM ; [facility] Medical Equipment - Implanted Devices Includes: Current Devices No Medical Equipment Recorded Medications Includes: Medications discussed during this encounter and other current Medications Discontinued / Stopped on this date TEMO CHAVEZ D.O. on 01/23/2016 Levaquin 500 MG Tablet Provider: PA CHAVEZ D.O. Diagnosis: Other pneumonia, unspecified organism Last Documented On 01/27/2016 2:58PM By [facility] ; [facility] New / Renewed during this visit TEMO CHAVEZ D.O. on 01/27/2016 Flonase Allergy Relief 50 MCG/ACT Suspension Provider: TEMO Woodruff 30 day supply: 1 unit, 0 refills Diagnosis: Allergic rhinitis, unspecified 2 sprays each nostril once daily Pharmacy: [facility] [address], [phone] - Last Documented On 01/27/2016 3:36PM By [facility] [facility] ; [facility] Current Medications (continue as prescribed) Loratadine 10 MG OR TABS 06/24/2014 Provider: Diagnosis: Last Documented On 06/24/2014 2:04PM By [facility] ; [facility] EpiPen 2-Twan 0.3 MG/0.3ML IJ CORTNEY 04/15/2014 Provide r: MELISSA EMERY MD Diagnosis: Last Documented On 08/05/2015 10:33AM By [facility] ; [facility] Past Medications on file Symbicort 80-4.5 MCG/ACT Aerosol 05/04/2016 - 06/03/2016 Provider: TEMO CHAVEZ D.O. Diagnosis: Emphysema, unspe cified inhale 2 puffs every 12 hour s-rinse mouth after use Last Documented On 05/04/2016 3:04PM By [facility] ; [facility] Phenytoin Sodium Extended 100 MG Capsule, conventional 05/04/2016 - 06/03/2016 Provider: TEMO CHAVEZ D.O. Diagnosis: Epilepsy, unsp, not intractable, without status epilepticus TAKE 1 CAPSULE BY MOUTH 3 TIMES A DAY Last Documented On 05/04/2016 3:21PM By [facility] ; [facility] Losartan Potassium 25 MG Tablet 05/04/2016 - 06/03/2016 Provider: TEMO CHAVEZ D.O. Diagnosis: Essential (prima ry) hypertension TAKE 1 TABLET BY MOUTH DAILY *PLEASE SPLIT* Last Documented On 05/04/2016 3:05PM By [facility] ; [facility] RaNITidine HCl 150 MG Tablet 05/04/2016 - 06/03/2016 Provider: TEMO CHAVEZ D.O. Diagnosis: Gastro-esophagea l reflux disease without esophagitis TAKE 1 TABLET BY MOUTH TWICE A DAY *PLEASE SPLIT* Last Documented On 05/04/2016 3:05PM By [facility] ; [facility] PredniSONE 10 MG Tablet 01/23/2016 - 01/29/2016 Provid er: TEMO CHAVEZ D.O. Diagnosis: 3 po qd x 2 days, 2 po qd x 2 days, 1 po qd x 2 days Last Documented On 01/23/2016 12:04PM By [facility] ; [facility] Albuterol Sulfate (2.5 MG/3ML) 0.083% Nebulization solution 01/23/2016 - 02/22/2016 Provider: TEMO CHAVEZ D.O. Diagnosis: Other pneumonia, unspecified organism as directed USE VIA NEBULIZER QID PRN Last Documented On 01/23/2016 12:04PM By [facility] ; [facility] ProAir HFA 108 (90 Base) MCG/ACT Aerosol Solution 01/23/2016 - 02/22/2016 Provider: TEMO CHAVEZ D.O. Diagnosis: Other pneumonia, unspecified organism ONE PUFF QID PRN Last Documented On 01/23/2016 12:04PM By [facility] ; [facility] Losartan Potassium 25 MG OR TABS 11/07/2012 - 02/06/20 13 Provider: MELISSA EMERY MD Diagnosis: Last Documented On 11/07/2012 3:26PM By MELISSA EMERY MD ; [facility] Dilantin 100 MG OR CAPS 06/06/2012 - 09/04/2012 Provid er: MELISSA EMERY MD Diagnosis: Last Documented On 06/06/2012 3:40PM By MELISSA EMERY MD ; [facility] raNITIdine HCl 150 MG OR TABS 06/06/2012 - 09/04/2012 Provider: MELISSA EMERY MD Diagnosis: Last Documented On 06/06/2012 3:40PM By MELISSA EMERY MD ; [facility] Medications Administered Includes: Administered Medications from this encounter No Administered Medications Recorded Vital Signs Includes: Vital Signs from this encounter Vital Name 01/27/2016 03:00P Blood Pressure Sitting R 122/68 BP Cuff Size Large Pulse Rate-Sitting (bpm) 58 Respiration Rate (breaths/min) 20 Temp-Tympanic (F) 96.6 Height (in) 64 Weight (lb) 114.125 Body Mass Index (kg/m2) 19.6 Body Surface Area (m2) 1.5 Oxygen Saturation (%) 98 Last Documented: On 01/27/2016 3:02PM ; [facility] Results Includes: Results discussed during this encounter No Results Recorded For Specified Dates History of Present Illness Includes: History of Present Illness from this encounter KEVIN OLVERA is a 65 year old male. - Medication list reviewed. - No systemic symptoms. - Nasal discharge from both nostrils. - Feeling congested in the chest. Social History Description Last Updated Smoking status : Former smoker 5 Last Documented On 6 3:00PM ; [facility] Not a current smoker 12/13/2011 Last Documented On 6 3:00PM ; [facility] Procedures and Surgical History Surgical History Last Updated History of inguinal hernia repair 2011 Last Documented On 6 3:00PM ; [facility] History of unilateral repair of inguinal hernia 12/13/2011 Last Documented On 6 3:00PM ; [facility] Medical History Includes: Medical History addressed during this encounter Description Last Updated History of seizure disorder 12/13/2011 Last Documented On 6 3:00PM ; [facility] Taking medication 12/13/2011 Last Documented On 6 3:00PM ; [facility] History of constipation 12/13/2011 Last Documented On 6 3:00PM ; [facility] History of esophageal reflux 12/13/2011 Last Documented On 6 3:00PM ; [facility] History of essential hypertension 2011 Last Documented On 6 3:00PM ; [facility] History of hemorrhoids 12/13/2011 Last Documented On 6 3:00PM ; [facility] History of hypertension 12/13/2011 Last Documented On 6 3:00PM ; [facility] History of hypothyroidism 12/13/2011 Last Documented On 6 3:00PM ; [facility] History of thyroid disorder 12/13/2011 Last Documented On 6 3:00PM ; [facility] Family History Includes: Family History addressed during this encounter Description Last Updated Family history reviewed - unchanged sin e last visit 11/25/2015 Last Documented On 6 3:00PM ; [facility] Fraternal history of cancer PASSED AT AG E 58 FROM THROAT CANCER 08/05/2015 Last Documented On 6 3:00PM ; [facility] Maternal history of colon cancer PASSED AT AGE 89 FROM COLON CANCER 08/05/2015 Last Documented On 6 3:00PM ; [facility] Family history unchanged 12/13/2011 Last Documented On 6 3:00PM ; [facility] Review of Systems Includes: Review of Systems from this encounter Systemic: Not feeling poorly (malaise). Otolaryngeal: Nasal discharge from both nostrils. Mental Status Includes: Mental Status from this encounter No Mental Status Recorded Functional Status Includes: Functional Status from this encounter No Functional Status Recorded Physical Exam Includes: Physical Exam from this encounter Allergies Includes: Active Allergies Substance Type Reaction Onset Date Resolved Date Statu s Penicillin V Potassium Allergy Skin Rash es / Eruption of skin, Hives / Urticaria 12/06/2011 Active Last Documented On 6 3:00PM ; [facility] Nalfon Allergy 12/06/2011 Active Last Documented On 6 3:00PM ; [facility] Lisinopril Allergy BAD DREAMS 12/06/2011 Active Last Documented On 6 3:00PM ; [facility] BEES Allergy 06/24/2014 Active Last Documented On 6 3:00PM ; [facility] Azithromycin Dihydrate Allergy Nausea, V omiting, Diarrhea / Diarrheal disorder 12/06/2011 Active Last Documented On 6 3:00PM ; [facility] Encounters Encounter Provider Location Date Check-In Time Check-Out Time Diagnosis RECHECK TEMO CHAVEZ D.O. [facility] 01/27/20 16 2:55PM 3:27PM Chronic Obstructive Pulmonary Disease Clinical Notes Includes: Clinical Notes from this encounter No Clinical Notes Recorded
--- OUTSIDE RECORDS SUMMARY | 2024-12-25 01:24 | XMS_ITS | Clinical Summary ---
Author Organization [facility] Address [address] [place] [address] Phone Care Team Providers Care Wet Machine Cutter Name Role Phone Unavailable Unavailable Unavailable Reason for Visit and Chief Complaint visit for: THE PATIENT COMPLAINS OF CHEST CONGESTION - The Chief Complaint is: SOB, CHEST CONGESTION, COUGH x 5 DAYS Problems Includes: Problems addressed during this encounter and other active Problems All Visits Onset Date Resolved Date Provider Condition S tatus Epilepsy, unsp, not intractable, without status epilepticus 11/25/2015 TEMO A CRANCER D.O. Active Last Documented On 6 9:14AM ; [facility] Gastro-esophageal reflux dis ease without esophagitis 11/25/2015 TEMO A CRANCER D.O. Active Last Documented On 6 9:14AM ; [facility] Essential (primary) hypertension 11/25/[address] CRANCER D.O. Active Last Documented On 6 9:14AM ; [facility] Pure hypercholesterolemia 11/06/2015 TEMO A C RANCER D.O. Active Last Documented On 6 11:15AM ; [facility] ESOPHAGEAL REFLUX 06/24/2014 TEMO A CRANCER D .O. Active Last Documented On 4 2:06PM ; [facility] HYPERTENSION NOS 06/24/2014 TEMO A CRANCER D. O. Active Last Documented On 4 2:06PM ; [facility] Black Or Tarry Stools (Melena) 12/13/2011 SERVANDO BRANHAM DO Active Last Documented On 2 5:43PM ; [facility] Note: Resolved Assessment of Constipation 12/06/2011 SERVANDO Siegel DANIELITO AGUIRRE Active Last Documented On 2 4:54PM ; [facility] Note: Unchanged Bright Red Blood Per Rectum 12/06/2011 SERVANDO Siegel INOCENTE CRUZ DO Active Last Documented On 2 4:54PM ; [facility] Note: Unchanged Plan of Treatment No Plan of Treatment Recorded Assessments Includes: Assessments from this encounter No Assessments Recorded Medical Equipment - Implanted Devices Includes: Current Devices No Medical Equipment Recorded Medications Includes: Medications discussed during this encounter and other current Medications Discontinued / Stopped on this date DOMONIQUE LOCKETT ANP-BC on 01/22/2015 Cipro 250 MG OR TABS Provider: DOMONIQUE BLANTON-BC Diagnosis: Last Documented On 01/13/2016 9:55AM By [place] ; [facility] New / Renewed during this visit TEMO CHAVEZ D.O. on 01/13/2016 Levaquin 500 MG Tablet Provider: PA CHAVEZ D.O. 10 day supply: 10 tablet, 0 refills Diagnosis: Other pneumonia, unspecified organism One tablet daily Pharmacy: [facility] [address], [phone] - Last Documented On 01/23/2016 11:53AM By [place] ; [facility] Albuterol Sulfate (2.5 MG/3ML) 0.083% Nebulization solution Provider: TEMO Woodruff 30 day supply: 2 box, 0 refills Diagnosis: Other pneumonia, unspecified organism as directed USE VIA NEBULIZER QID PRN Pharmacy: [facility] [address], [phone] - Last Documented On 01/23/2016 11:52AM By [place] ; [facility] ProAir HFA 108 (90 Base) MCG/ACT Aerosol, solution Provider: TEMO TOBAR D.ORanjan 30 day supply: 1 inhaler, 0 refills Diagnosis: Other pneumonia, unspecified organism ONE PUFF QID PRN Pharmacy: [facility], [phone] - Last Documented On 01/23/2016 11:52AM By [place] ; [facility] Current Medications (continue as prescribed) Flonase Allergy Relief 50 MCG/ACT Suspension 01/27/2016 Provider: TEMO Woodruff Diagnosis: Allergic rhiniti s, unspecified 2 sprays each nostril once daily Last Documented On 01/27/2016 3:36PM By [place] ; [facility] Loratadine 10 MG OR TABS 06/24/2014 Provider: Diagnosis: Last Documented On 06/24/2014 2:04PM By [place] ; [facility] EpiPen 2-Twan 0.3 MG/0.3ML IJ CORTNEY 04/15/2014 Provide r: MELISSA EMERY MD Diagnosis: Last Documented On 08/05/2015 10:33AM By [place] ; [facility] Past Medications on file Symbicort 80-4.5 MCG/ACT Aerosol 05/04/2016 - 06/03/2016 Provider: TEMO CHAVEZ D.O. Diagnosis: Emphysema, unspe cified inhale 2 puffs every 12 hour s-rinse mouth after use Last Documented On 05/04/2016 3:04PM By [place] ; [facility] Phenytoin Sodium Extended 100 MG Capsule, conventional 05/04/2016 - 06/03/2016 Provider: TEMO CHAVEZ D.O. Diagnosis: Epilepsy, unsp, not intractable, without status epilepticus TAKE 1 CAPSULE BY MOUTH 3 TIMES A DAY Last Documented On 05/04/2016 3:21PM By [place] ; [facility] Losartan Potassium 25 MG Tablet 05/04/2016 - 06/03/2016 Provider: TEMO CHAVEZ D.O. Diagnosis: Essential (prima ry) hypertension TAKE 1 TABLET BY MOUTH DAILY *PLEASE SPLIT* Last Documented On 05/04/2016 3:05PM By [place] ; [facility] RaNITidine HCl 150 MG Tablet 05/04/2016 - 06/03/2016 Provider: TEMO CHAVEZ D.O. Diagnosis: Gastro-esophagea l reflux disease without esophagitis TAKE 1 TABLET BY MOUTH TWICE A DAY *PLEASE SPLIT* Last Documented On 05/04/2016 3:05PM By [place] ; [facility] PredniSONE 10 MG Tablet 01/23/2016 - 01/29/2016 Provid er: TEMO CHAVEZ D.O. Diagnosis: 3 po qd x 2 days, 2 po qd x 2 days, 1 po qd x 2 days Last Documented On 01/23/2016 12:04PM By [place] ; [facility] Albuterol Sulfate (2.5 MG/3ML) 0.083% Nebulization solution 01/23/2016 - 02/22/2016 Provider: TEMO CHAVEZ D.O. Diagnosis: Other pneumonia, unspecified organism as directed USE VIA NEBULIZER QID PRN Last Documented On 01/23/2016 12:04PM By [place] ; [facility] ProAir HFA 108 (90 Base) MCG/ACT Aerosol Solution 01/23/2016 - 02/22/2016 Provider: TEMO CHAVEZ D.O. Diagnosis: Other pneumonia, unspecified organism ONE PUFF QID PRN Last Documented On 01/23/2016 12:04PM By [place] ; [facility] Losartan Potassium 25 MG OR TABS 11/07/2012 - 02/06/20 13 Provider: MELISSA EMERY MD Diagnosis: Last Documented On 11/07/2012 3:26PM By MELISSA EMERY MD ; [facility] Dilantin 100 MG OR CAPS 06/06/2012 - 09/04/2012 Provid er: MELISSA EMERY MD Diagnosis: Last Documented On 06/06/2012 3:40PM By MELISSA EMERY MD ; [facility] raNITIdine HCl 150 MG OR TABS 06/06/2012 - 09/04/2012 Provider: MELISSA EMERY MD Diagnosis: Last Documented On 06/06/2012 3:40PM By MELISSA EMERY MD ; [facility] Medications Administered Includes: Administered Medications from this encounter No Administered Medications Recorded Vital Signs Includes: Vital Signs from this encounter Vital Name 01/13/2016 09:58A Blood Pressure Sitting L 132/78 BP Cuff Size Large Pulse Rate-Sitting (bpm) 94 Respiration Rate (breaths/min) 20 Temp-Tympanic (F) 97.9 Height (in) 64 Weight (lb) 119 Body Mass Index (kg/m2) 20.4 Body Surface Area (m2) 1.6 Oxygen Saturation (%) 98 Last Documented: On 01/13/2016 10:00A M ; [facility] Results Includes: Results discussed during this encounter No Results Recorded For Specified Dates History of Present Illness Includes: History of Present Illness from this encounter HPI LA OLVERA is a 65 year old male. - Medication list reviewed. - Feeling poorly (malaise). - No cardiovascular symptoms. - Feeling congested in the chest. Social History Description Last Updated Smoking status : Former smoker 5 Last Documented On 6 9:58AM ; [facility] Not a current smoker 12/13/2011 Last Documented On 6 9:58AM ; [facility] Procedures and Surgical History Surgical History Last Updated History of inguinal hernia repair 2011 Last Documented On 6 9:58AM ; [facility] History of unilateral repair of inguinal hernia 12/13/2011 Last Documented On 6 9:58AM ; [facility] Medical History Includes: Medical History addressed during this encounter Description Last Updated History of seizure disorder 12/13/2011 Last Documented On 6 9:58AM ; [facility] Taking medication 12/13/2011 Last Documented On 6 9:58AM ; [facility] History of constipation 12/13/2011 Last Documented On 6 9:58AM ; [facility] History of esophageal reflux 12/13/2011 Last Documented On 6 9:58AM ; [facility] History of essential hypertension 2011 Last Documented On 6 9:58AM ; [facility] History of hemorrhoids 12/13/2011 Last Documented On 6 9:58AM ; [facility] History of hypertension 12/13/2011 Last Documented On 6 9:58AM ; [facility] History of hypothyroidism 12/13/2011 Last Documented On 6 9:58AM ; [facility] History of thyroid disorder 12/13/2011 Last Documented On 6 9:58AM ; [facility] Family History Includes: Family History addressed during this encounter Description Last Updated Family history reviewed - unchanged sinc e last visit 11/25/2015 Last Documented On 6 9:58AM ; [facility] Fraternal history of cancer PASSED AT AG E 58 FROM THROAT CANCER 08/05/2015 Last Documented On 6 9:58AM ; [facility] Maternal history of colon cancer PASSED AT AGE 89 FROM COLON CANCER 08/05/2015 Last Documented On 6 9:58AM ; [facility] Family history unchanged 12/13/2011 Last Documented On 6 9:58AM ; [facility] Review of Systems Includes: Review of Systems from this encounter Systemic: Feeling poorly (malaise). Cardiovascular: No chest pain or discomfort. Pulmonary: Feeling congested in the chest. Mental Status Includes: Mental Status from this [...] Active Last Documented On 6 3:00PM ; [facility] Nalfon Allergy 12/06/2011 Active Last Documented On 6 3:00PM ; [facility] Lisinopril Allergy BAD DREAMS 12/06/2011 Active Last Documented On 6 3:00PM ; [facility] BEES Allergy 06/24/2014 Active Last Documented On 6 3:00PM ; [facility] Azithromycin Dihydrate Allergy Nausea, V omiting, Diarrhea / Diarrheal disorder 12/06/2011 Active Last Documented On 6 3:00PM ; [facility] Encounters Encounter Provider Location Date Check-In Time Check-Out Time Diagnosis SAME DAY SICK VISIT TEMO CHAVEZ D.O. [facility] 01/13/20 16 9:37AM 10:47AM Clinical Notes Includes: Clinical Notes from this encounter No Clinical Notes Recorded
--- OUTSIDE RECORDS SUMMARY | 2024-12-25 01:24 | XMS_ITS ---
Author Organization [email or web address] Address [address] [place] [address] Care Team Providers Care Small Order Cutter Name Role Phone Benny Reyes Primary Care Provider LA Freedman Unavailable [phone] REASON FOR VISIT Palliation Medications Medication SIG (Take, Route, Frequency, Duration) Notes Start Date End Date Status Ciclopirox 8 % 1 application Externally Once a day 10/25/2023 Active Gabapentin 100 for -2 *Pick strength-f orm from [employer] for eRX* 05/15/2021 Active Ciclopirox Olamine 0.77 % APPLY TO TOENAILS ONCE DAILY. for 30 Active Ciclopirox 8 % 1 application Externally Once a day Active Ciclopirox 8 % 1 application Externally Once a day May switch to a 7.7% solution, option not on software 07/13/2024 Active Dilantin for -2 *Pick strength-f orm from [employer] for eRX* 11/06/2019 Active Jublia 10 % External for -2 11/30/2021 A ctive Lidocaine-Prilocain e 2.5-2.5 % External for -2 05/18/2021 Active Ciclopirox 8 % External for -2 01/25/2022 Active Lidocaine 4 % for -2 05/21/2021 Activ e DULOXETINE 20 for -2 *Reorder from [employer] for eRx and Interaction Alerts* 05/14/2021 Active Lidocaine 5 for -2 *Pick strength-f orm from [employer] for eRX* 10/02/2019 Active Vital Signs Blood pressure systolic 126 mm Hg 09/24/20 24 Blood pressure diastolic 80 mm Hg 024 Heart Rate 72 /min 09/24/2024 Height 65 in 09/24/2024 Weight 130 lbs 09/24/2024 BMI 21.63 kg/m2 09/24/2024 Height-cm 165.1 cm 09/24/2024 Weight-kg 58.97 kg 09/24/2024 Encounters Encounter Location Date Provider Diagnosis [facility] [address] [place] [address] 09/24/2024 LA CARRILLO Tinea unguium B35.1 and Other specified peripheral vascular diseases I73.89 Assessments Encounter Date Diagnosis (ICD Code) Assessment Notes Treatment Notes Treatment Clinical Notes Section Notes 09/24/2024 Tinea unguium (ICD-10 - B35.1) 09/24/2024 Other specified peripheral vascular diseases (ICD-10 [...] the nail by use of a sharp plate cutter and/or rotary instrument. Reason for debridement include [...] applied. Debrided 10 nails. Plan Of Treatment Treatment Notes Assessment Notes Other specified peripheral [...] the nail by use of a sharp plate cutter and/or rotary instrument. Reason for debridement include [...] Up: 2 Months, Reason: PVD Provider Name:LA Lissy LIANG TUBBS, 03/11/2025 02:00:00 PM, [address] [place], [address], Progress Notes * LA OLVERA JRDOB:[birth year] (74 yo M)Acc No.[id number]:09/24/2024 Patient: LA NOLASCO JR Provider: Cricket Carrillo DPM :1950 A ge:74 Y S ex:Male Date:09/24/2024 Address:[address] [place] [address] Pcp:Benny Reyes Subjective: * Chief Complaints: * [...] , Notes to Pharmacist: *[facility] for [facility]*DULOXETINE 20 , Notes to Pharmacist: *Reorder [facility] for eRx and Interaction Alerts*Lidocaine 4 % Cream Ciclopirox 8 % Solution External Lidocaine-Prilocaine 2.5-2.5 % Cream External Jublia 10 % Solution External Dilantin , Notes to Pharmacist: *[facility] for [facility]RX*Gabapentin 100 , Notes to Pharmacist: *[facility] from [facility] for [facility]RX*Ciclopirox 8 % Solution 1 application Externally Once a day Ciclopirox 8 % Solution 1 application Externally Once a day Ciclopirox Olamine 0.77 % Suspension APPLY TO TOENAILS ONCE DAILY. Ciclopirox 8 % Solution 1 application Externally Once a day , Notes to Pharmacist: May switch to a 7.7% solution, option not on softwareTaking Lidocaine 5 , Notes to Pharmacist: *Pick strength-form from [facility] for eRX*Taking DULOXETINE 20 , Notes to Pharmacist: *Reorder from [facility] for eRx and Interaction Alerts*Taking Lidocaine 4 % Cream Taking Ciclopirox 8 % Solution External Taking Lidocaine-Prilocaine 2.5-2.5 % Cream External Taking Jublia 10 % Solution External Taking Dilantin , Notes to Pharmacist: *[facility] for [facility]RX*Taking Gabapentin 100 , Notes to Pharmacist: *Pick strength-form from [facility] for eRX*Taking Ciclopirox 8 % Solution 1 application Externally Once a day Taking Ciclopirox 8 % Solution 1 application Externally Once a day Taking Ciclopirox Olamine 0.77 % Suspension APPLY TO TOENAILS ONCE DAILY. Taking Ciclopirox 8 % Solution 1 application Externally Once a day , Notes to Pharmacist: May switch to a 7.7% solution, option not on software Objective: * Vitals: H t: 65 in, Wt:130lbs, BP:126/80mm Hg, HR:72/min, BMI:21.63Index, Wt-k.97 kg, Ht-cm: 165.1 cm, Body Surface Area: 1.64. * Examination: D ermatologic: Skin findings: b [...] diseases - I73.89 (Primary) 2 . T darren unguium - B35.1 Plan: * Treatment: * Procedure Codes: 1 1721 DEBRIDE NAIL, 6 OR MORE, Modifiers: Q8 * Follow Up: 2 Months (Reason: PVD) * Billing Information: * Visit Code: * Procedure Codes: 09370 DEBRIDE NAIL, 6 OR MORE. Modifiers: Q8 * DECORATOR Sign off status: Completed true * Provider: Cricket Carrillo DPM Date: 11/25/2023 Generated for Aurelia guidry/Lillian/eTransmitting on: 0 12/25/2024 01:24 AM CDT History [...]
--- OUTSIDE RECORDS SUMMARY | 2024-12-25 01:24 | XMS_ITS | Clinical Summary ---
Author Organization [facility] Address [address] [place] [address] Phone Care Team Providers Care Production Hand Name Role Phone Unavailable Unavailable Unavailable Reason for Visit and Chief Complaint [Patient Encounter] Problems Includes: Problems addressed during this encounter and other active Problems All Visits Onset Date Resolved Date Provider Condition S tatus Epilepsy, unsp, not intractable, without status epilepticus 11/25/2015 TEMO A CRANCER D.O. Active Last Documented On 6 9:14AM ; [facility] Gastro-esophageal reflux dis ease without esophagitis 11/25/2015 TEMO A CRANCER D.O. Active Last Documented On 6 9:14AM ; [facility] Essential (primary) hypertension 11/25/[address] CRANCER D.O. Active Last Documented On 6 9:14AM ; [facility] Pure hypercholesterolemia 11/06/2015 TEMO A C RANCER D.O. Active Last Documented On 6 11:15AM ; [facility] ESOPHAGEAL REFLUX 06/24/2014 TEMO A CRANCER D .O. Active Last Documented On 4 2:06PM ; [facility] HYPERTENSION NOS 06/24/2014 TEMO A CRANCER D. O. Active Last Documented On 4 2:06PM ; [facility] Black Or Tarry Stools (Melena) 12/13/2011 SERVANDO BRANHAM DO Active Last Documented On 2 5:43PM ; [facility] Note: Resolved Assessment of Constipation 12/06/2011 SERVANDO GLEZ DO Active Last Documented On 2 4:54PM ; [facility] Note: Unchanged Bright Red Blood Per Rectum 12/06/2011 SERVANDO CRUZ DO Active Last Documented On 2 4:54PM ; [facility] Note: Unchanged Plan of Treatment No Plan of Treatment Recorded Assessments Includes: Assessments from this encounter No Assessments Recorded Medical Equipment - Implanted Devices Includes: Current Devices No Medical Equipment Recorded Medications Includes: Medications discussed during this encounter and other current Medications Current Medications (continue as prescribed) Flonase Allergy Relief 50 MCG/ACT Suspension 01/27/2016 Provider: TEMO Woodruff Diagnosis: Allergic rhiniti s, unspecified 2 sprays each nostril once daily Last Documented On 01/27/2016 3:36PM By [place] ; [facility] Loratadine 10 MG OR TABS 06/24/2014 Provider: Diagnosis: Last Documented On 06/24/2014 2:04PM By [place] ; [facility] EpiPen 2-Twan 0.3 MG/0.3ML IJ CORTNEY 04/15/2014 Provide r: MELISSA EMERY MD Diagnosis: Last Documented On 08/05/2015 10:33AM By [place] ; [facility] Medications Administered Includes: Administered Medications from this [...] Active Last Documented On 6 3:00PM ; [facility] Nalfon Allergy 12/06/2011 Active Last Documented On 6 3:00PM ; [facility] Lisinopril Allergy BAD DREAMS 12/06/2011 Active Last Documented On 6 3:00PM ; [facility] BEES Allergy 06/24/2014 Active Last Documented On 6 3:00PM ; [facility] Azithromycin Dihydrate Allergy Nausea, V omiting, Diarrhea / Diarrheal disorder 12/06/2011 Active Last Documented On 6 3:00PM ; [facility] Encounters Encounter Provider Location Date Check-In Time Check-Out Time Diagnosis [Patient Encounter] TEMO CHAVEZ D.O. 11/11/2015 11:27AM 11:59PM Clinical Notes Includes: Clinical Notes from this encounter No Clinical Notes Recorded
--- OUTSIDE RECORDS SUMMARY | 2024-12-25 01:24 | XMS_ITS ---
Author Organization [employer] Address [address] [place] [address] Care Team Providers Care K 12 Principal Name Role Phone Benny Reyes Primary Care Provider LA Freedman Unavailable [phone] REASON FOR VISIT Palliation Medications Medication SIG (Take, Route, Frequency, Duration) Notes Start Date End Date Status Ciclopirox 8 % 1 application Externally Once a day Active Ciclopirox 8 % 1 application Externally Once a day 10/25/2023 Active Gabapentin 100 for -2 *Pick strength-f orm from [facility] for eRX* 05/15/2021 Active Lidocaine 5 for -2 *[facility] 10/02/2019 Active Ciclopirox Olamine 0.77 % APPLY SUSPENSION EXTERNALLY ONCE DAILY for 30 Active Dilantin for -2 *Pick strength-f orm from [facility] for eRX* 11/06/2019 Active Jublia 10 % External for -2 11/30/2021 A ctive Lidocaine-Prilocain e 2.5-2.5 % External for -2 05/18/2021 Active Ciclopirox 8 % External for -2 01/25/2022 Active Lidocaine 4 % for -2 05/21/2021 Activ e DULOXETINE 20 for -2 *[facility] and Interaction Alerts* 05/14/2021 Active Vital Signs Blood pressure systolic 126 mm Hg 12/15/19 25 Blood pressure diastolic 79 mm Hg 025 Heart Rate 74 /min 12/14/2024 Height 65 in 12/14/2024 Weight 130 lbs 12/14/2024 BMI 21.63 kg/m2 12/14/2024 Height-cm 165.1 cm 12/14/2024 Weight-kg 58.97 kg 12/14/2024 Encounters Encounter Location Date Provider Diagnosis [facility] [address] [place] [address] 12/14/2024 LA CARRILLO Tinea unguium B35.1 and Other specified peripheral vascular diseases I73.89 Assessments Encounter Date Diagnosis (ICD Code) Assessment Notes Treatment Notes Treatment Clinical Notes Section Notes 12/14/2024 Tinea unguium (ICD-10 - B35.1) 12/14/2024 [...] the nail by use of a sharp lettuce cutter and/or rotary instrument. Reason for debridement [...] the nail by use of a sharp lettuce cutter and/or rotary instrument. Reason for debridement [...] PVD Provider Name:LA TUBBS, 03/11/2025 02:00:00 PM, [address] [place], [address], Progress Notes * LA OLVERA JRDOB:[birth year] (74 yo M)Acc No.[id number]:12/14/2024 Patient: LA NOLASCO JR Provider: Cricket Carrillo DPM :1950 A ge:74 Y S ex:Male Date:12/14/2024 Address:[address] [place], [place] [id number] Pcp:Benny Reyes Subjective: * Chief Complaints: * P alliation * HPI: N ails: The patient relates t o having difficulty trimming their nails, that all of their nails are thickened, that all of their nails are discolored. * Medical History: * Surgical History: * Hospitalization/Major Diagno stic Procedure: * Medications: T akingLidocaine 5 , Notes to Pharmacist: *[facility]*DULOXETINE 20 , Notes to Pharmacist: *[facility] and Interaction Alerts*Lidocaine 4 % Cream Ciclopirox 8 % Solution External Lidocaine-Prilocaine 2.5-2.5 % Cream External Jublia 10 % Solution External Dilantin , Notes to Pharmacist: *[facility]*Gabapentin 100 , Notes to Pharmacist: *[facility]*Ciclopirox 8 % Solution 1 application Externally Once a day Ciclopirox 8 % Solution 1 application Externally Once a day Ciclopirox Olamine 0.77 % Suspension APPLY SUSPENSION EXTERNALLY ONCE DAILY Taking Lidocaine 5 , Notes to Pharmacist: *[facility]*Taking DULOXETINE 20 , Notes to Pharmacist: *[facility] and Interaction Alerts*Taking Lidocaine 4 % Cream Taking Ciclopirox 8 % Solution External Taking Lidocaine-Prilocaine 2.5-2.5 % Cream External Taking Jublia 10 % Solution External Taking Dilantin , Notes to Pharmacist: *[facility]*Taking Gabapentin 100 , Notes to Pharmacist: *Pick strength-form from [facility] for eRX*Taking Ciclopirox 8 % Solution 1 application Externally Once a day Taking Ciclopirox 8 % Solution 1 application Externally Once a day Taking Ciclopirox Olamine 0.77 % Suspension APPLY SUSPENSION EXTERNALLY ONCE DAILY Objective: * Vitals: H t: 65 in, Wt:130lbs, BP:126/79mm Hg, HR:74/min, BMI:21.63Index, Wt-k.97 kg, Ht-cm: 165.1 cm, Body [...] inea unguium - B35.1 Plan: * Treatment: * Procedure Codes: 1 1721 DEBRIDE NAIL, 6 OR MORE, Modifiers: Q8 * Follow Up: 2 Months (Reason: PVD) * Billing Information: * Visit Code: * Procedure Codes: 84076 DEBRIDE NAIL, 6 OR MORE. Modifiers: Q8 * Sign off status: Completed true * Provider: Cricket Carrillo DPM Date: 0 12/14/2024 Generated for Aurelia guidry/Lillian/eTransmitting on: 0 12/25/2024 01:23 AM CDT History and Physical Notes * [...]
--- OUTSIDE RECORDS SUMMARY | 2024-12-25 01:24 | XMS_ITS | Clinical Summary ---
Author Organization [facility] Address [address] [place] [address] Phone Care Team Providers Care English Tutor Name Role Phone Unavailable Unavailable Unavailable Reason for Visit and Chief Complaint visit for: THE PATIENT IS HERE TO DISCUSS HIS HTN AND HIS LABS - The Chief Complaint is: CHECK UP WITH LAB RESULTS. NO COMPLAINTS Problems Includes: Problems addressed during this encounter and other active Problems Current Visit Onset Date Resolved Date Provider Conditio n Status Epilepsy, unsp, not intractable, without status epilepticus 11/25/2015 TEMO A CRANCER D.O. Active Last Documented On 6 9:14AM ; [facility] Gastro-esophageal reflux dis ease without esophagitis 11/25/2015 TEMO A CRANCER D.O. Active Last Documented On 6 9:14AM ; [facility] Essential (primary) hypertension 11/25/[address] A CRANCER D.O. Active Last Documented On 6 9:14AM ; [facility] Past Visits Onset Date Resolved Date Provider Condition Status Pure hypercholesterolemia 11/06/2015 LE STER A CRANCER D.O. Active Last Documented On 6 11:15AM ; [facility] ESOPHAGEAL REFLUX 06/24/2014 TEMO A CRANCER D .O. Active Last Documented On 4 2:06PM ; [facility] HYPERTENSION NOS 06/24/2014 TEMO A CRANCER D. O. Active Last Documented On 4 2:06PM ; [facility] Black Or Tarry Stools (Melena) 12/13/2011 SERVANDO BRANHAM DO Active Last Documented On 2 5:43PM ; [facility] Note: Resolved Assessment of Constipation 12/06/2011 SERVANDO Siegel DANIELITO AGUIRRE DO Active Last Documented On 2 4:54PM ; [facility] Note: Unchanged Bright Red Blood Per Rectum 12/06/2011 SERVANDO Siegel INOCENTE CRUZ DO Active Last Documented On 2 4:54PM ; [facility] Note: Unchanged Plan of Treatment No Plan of Treatment Recorded Assessments Includes: Assessments from this encounter Findings - Benign essential hypertension which is stable - Last Documented On 12/01/2015 6:26PM ; [facility] Medical Equipment - Implanted Devices Includes: Current Devices No Medical Equipment Recorded Medications Includes: Medications discussed during this encounter and other current Medications Discontinued / Stopped on this date MELISSA EMERY MD on 04/15/2014 Dilantin 100 MG OR CAPS Provider: MELISSA EMERY MD Diagnosis: Last Documented On 11/25/2015 9:10AM By [place] ; [facility] New / Renewed during this visit TEMO CHAVEZ D.O. on 11/25/2015 Phenytoin Sodium Extended 100 MG Capsule Provider: TEMO Woodruff 30 day supply: 90 capsule, 5 refills Diagnosis: Epilepsy, unsp, not intractable, without status epilepticus *TID - One tablet three time s a day One tablet three times a day Pharmacy: [facility] [address], [phone] - Last Documented On 05/04/2016 3:03PM By [place] ; [facility] Losartan Potassium 25 MG Tablet Provider: TEMO Woodruff 30 day supply: 30 tablet, 5 refills Diagnosis: Essential (primary) hypertension *1 dly - One tablet daily TA KE 1 TABLET BY MOUTH DAILY Pharmacy: [facility] [address], [phone] - Last Documented On 05/04/2016 3:02PM By [place] ; [facility] Ranitidine HCl 150 MG Tablet Provider: TEMO Woodruff 30 day supply: 60 tablet, 5 refills Diagnosis: Gastro-esophageal reflux disease without esophagitis *BID - One tablet twice a da y One tablet twice a day PLEASE SPLIT TABS Pharmacy: [facility] [address], [phone] - Last Documented On 05/04/2016 3:00PM By [place] ; [facility] Current Medications (continue as prescribed) Flonase Allergy Relief 50 MCG/ACT Suspension 01/27/2016 Provider: TEMO Woodruff Diagnosis: Allergic rhiniti s, unspecified 2 sprays each nostril once daily Last Documented On 01/27/2016 3:36PM By [place] ; [facility] Loratadine 10 MG OR TABS 06/24/2014 Provider: Diagnosis: Last Documented On 06/24/2014 2:04PM By [place] ; [facility] EpiPen 2-Twan 0.3 MG/0.3ML IJ CORTNEY 04/15/2014 Provide r: MELISSA EMERY MD Diagnosis: Last Documented On 08/05/2015 10:33AM By [place] ; [facility] Past Medications on file Symbicort 80-4.5 MCG/ACT Aerosol 05/04/2016 - 06/03/2016 Provider: TEMO CHAVEZ D.O. Diagnosis: Emphysema, unspe cified inhale 2 puffs every 12 hour s-rinse mouth after use Last Documented On 05/04/2016 3:04PM By [place] ; [facility] Phenytoin Sodium Extended 100 MG Capsule, conventional 05/04/2016 - 06/03/2016 Provider: TEMO CHAVEZ D.O. Diagnosis: Epilepsy, unsp, not intractable, without status epilepticus TAKE 1 CAPSULE BY MOUTH 3 TIMES A DAY Last Documented On 05/04/2016 3:21PM By [place] ; [facility] Losartan Potassium 25 MG Tablet 05/04/2016 - 06/03/2016 Provider: TEMO CHAVEZ D.O. Diagnosis: Essential (prima ry) hypertension TAKE 1 TABLET BY MOUTH DAILY *PLEASE SPLIT* Last Documented On 05/04/2016 3:05PM By [place] ; [facility] RaNITidine HCl 150 MG Tablet 05/04/2016 - 06/03/2016 Provider: TEMO CHAVEZ D.O. Diagnosis: Gastro-esophagea l reflux disease without esophagitis TAKE 1 TABLET BY MOUTH TWICE A DAY *PLEASE SPLIT* Last Documented On 05/04/2016 3:05PM By [place] ; [facility] PredniSONE 10 MG Tablet 01/23/2016 - 01/29/2016 Provid er: TEMO CHAVEZ D.O. Diagnosis: 3 po qd x 2 days, 2 po qd x 2 days, 1 po qd x 2 days Last Documented On 01/23/2016 12:04PM By [place] ; [facility] Albuterol Sulfate (2.5 MG/3ML) 0.083% Nebulization solution 01/23/2016 - 02/22/2016 Provider: TEMO CHAVEZ D.O. Diagnosis: Other pneumonia, unspecified organism as directed USE VIA NEBULIZER QID PRN Last Documented On 01/23/2016 12:04PM By [place] ; [facility] ProAir HFA 108 (90 Base) MCG/ACT Aerosol Solution 01/23/2016 - 02/22/2016 Provider: TEMO CHAVEZ D.O. Diagnosis: Other pneumonia, unspecified organism ONE PUFF QID PRN Last Documented On 01/23/2016 12:04PM By [place] ; [facility] Losartan Potassium 25 MG OR TABS 11/07/2012 - 02/06/20 13 Provider: MELISSA EMERY MD Diagnosis: Last Documented On 11/07/2012 3:26PM By MELISSA EMERY MD ; [facility] Dilantin 100 MG OR CAPS 06/06/2012 - 09/04/2012 Provid er: MELISSA EMERY MD Diagnosis: Last Documented On 06/06/2012 3:40PM By MELISSA EMERY MD ; [facility] raNITIdine HCl 150 MG OR TABS 06/06/2012 - 09/04/2012 Provider: MELISSA EMERY MD Diagnosis: Last Documented On 06/06/2012 3:40PM By MELISSA EMERY MD ; [facility] Medications Administered Includes: Administered Medications from this encounter No Administered Medications Recorded Vital Signs Includes: Vital Signs from this encounter Vital Name 11/25/2015 09:10A Blood Pressure Sitting L 118/76 BP Cuff Size Large Pulse Rate-Sitting (bpm) 73 Respiration Rate (breaths/min) 18 Height (in) 64 Weight (lb) 123 Body Mass Index (kg/m2) 21.1 Body Surface Area (m2) 1.6 Oxygen Saturation (%) 100 Last Documented: On 11/25/2015 9:15AM ; [facility] Results Includes: Results discussed during this encounter No Results Recorded For Specified Dates History of Present Illness Includes: History of Present Illness from this encounter KEVIN OLVERA is a 65 year old male. - Medication list reviewed. - No systemic symptoms. - No cardiovascular symptoms. - No pulmonary symptoms. Social History Description Last Updated Smoking status : Former smoker 5 Last Documented On 6 9:10AM ; [facility] Not a current smoker 12/13/2011 Last Documented On 6 9:10AM ; [facility] Procedures and Surgical History Includes: Procedures from this encounter Procedures Code Diagnosis Performing Provider Service L ocation Service Date plan of care reviewed and agreed to CONTINUE MEDS Last Documented On 6 6:23PM ; [facility] Surgical History Last Updated History of inguinal hernia repair 2011 Last Documented On 6 9:10AM ; [facility] History of unilateral repair of inguinal hernia 12/13/2011 Last Documented On 6 9:10AM ; [facility] Medical History Includes: Medical History addressed during this encounter Description Last Updated History of seizure disorder 12/13/2011 Last Documented On 6 9:10AM ; [facility] Taking medication 12/13/2011 Last Documented On 6 9:10AM ; [facility] History of constipation 12/13/2011 Last Documented On 6 9:10AM ; [facility] History of esophageal reflux 12/13/2011 Last Documented On 6 9:10AM ; [facility] History of essential hypertension 2011 Last Documented On 6 9:10AM ; [facility] History of hemorrhoids 12/13/2011 Last Documented On 6 9:10AM ; [facility] History of hypertension 12/13/2011 Last Documented On 6 9:10AM ; [facility] History of hypothyroidism 12/13/2011 Last Documented On 6 9:10AM ; [facility] History of thyroid disorder 12/13/2011 Last Documented On 6 9:10AM ; [facility] Family History Includes: Family History addressed during this encounter Description Last Updated Family history reviewed - unchanged sinc e last visit 11/25/2015 Last Documented On 6 6:26PM ; [facility] Fraternal history of cancer PASSED AT AG E 58 FROM THROAT CANCER 08/05/2015 Last Documented On 6 9:10AM ; [facility] Maternal history of colon cancer PASSED AT AGE 88 FROM COLON CANCER 08/05/2015 Last Documented On 6 9:10AM ; [facility] Family history unchanged 12/13/2011 Last Documented On 6 9:10AM ; [facility] Review of Systems Includes: Review of Systems from this encounter Systemic: Not feeling poorly (malaise). Cardiovascular: No chest pain or discomfort. Pulmonary: No dyspnea. Mental Status Includes: Mental Status from this [...] Active Last Documented On 6 3:00PM ; [facility] Nalfon Allergy 12/06/2011 Active Last Documented On 6 3:00PM ; [facility] Lisinopril Allergy BAD DREAMS 12/06/2011 Active Last Documented On 6 3:00PM ; [facility] BEES Allergy 06/24/2014 Active Last Documented On 6 3:00PM ; [facility] Azithromycin Dihydrate Allergy Nausea, V omiting, Diarrhea / Diarrheal disorder 12/06/2011 Active Last Documented On 6 3:00PM ; [facility] Encounters Encounter Provider Location Date Check-In Time Check-Out Time Diagnosis CHECK UP TEMO CHAVEZ D.O. [facility] 11/25/19 16 9:02AM 9:30AM Essential Hypertension Benign Clinical Notes Includes: Clinical Notes from this encounter No Clinical Notes Recorded
--- OUTSIDE RECORDS SUMMARY | 2024-12-25 01:25 | XMS_ITS | Clinical Summary ---
Author Organization [facility] Address [facility] [place] [address] Care Team Providers Care Heating And Ventilation Engineer Name Role Phone Benny Reyes MD Primary Care Provider [phone] Allergies Active Allergy Reactions Criticality Noted Date Comments Fenoprofen Itching 03/20/2018 Nsaids Itching 03/20/2018 Penicillins Rash Medium 03/20/2018 Tolerates ceftriaxone (03/2018) Medications omeprazole 20 MG capsule Take 1 capsule (20 mg total) by mouth as needed. Active aspirin EC 81 MG EC tablet Take 1 tablet (81 mg total) by mouth daily. Active simethicone 125 MG chewable tablet Chew 1 tablet (125 mg total) by mouth every 6 (six) hours as needed for Flatulence. Active olmesartan (BENICAR) 20 MG tablet Take 1 tablet (20 mg total) by mouth daily. 01/02/2024 Active famotidine (PEPCID) 40 MG tablet Take 1 tablet (40 mg total) by mouth 2 (two) times daily. 01/02/2024 Active loratadine (CLARITIN) 10 MG tablet Take 1 tablet (10 mg total) by mouth daily. Active azelastine (OPTIVAR) 0.05 % ophthalmic solution 03/02/2024 Active Ciclopirox Olamine 0.77 % Suspension APPLY TO TOENAILS ONCE DAILY. 03/02/2024 Active EPINEPHrine 0.3 MG/0.3ML injection 03/22/2024 Active phenytoin ER (DILANTIN KAPSEALS) 100 MG capsule Take 1 capsule (100 mg total) by mouth every other day. 03/02/2024 Active tamsulosin (FLOMAX) 0.4 MG Cap Take 1 capsule (0.4 mg total) by mouth as needed. 03/22/2024 Active Active Problems Problem Noted Date Diagnosed Date Left inguinal hernia 01/04/2024 Acute hyponatremia 03/20/2018 Hyponatremia 03/20/2018 Social History Tobacco Use Types Packs/Day Years Used Date Smoking Tobacco: Former Tobacco Cessation:Counseling Given: No Alcohol Use Standard Drinks/Week Comments Yes 0 (1 standard drink = 0.6 oz pur e alcohol) Sex and Gender Information Value Date Recorded Sex Assigned at Not on file Legal Sex Male 4:53 PM CDT Gender Identity Not on file Sexual Orientation Not on file Last Filed Vital Signs Vital Sign Reading Time Taken Comments Blood Pressure 146/68 04/18/2024 8:55 AM CDT Pulse 66 04/18/2024 8:55 AM CDT Temperature 36.2 C (97.1 F) 03/29/2024 11:35 AM CDT Respiratory Rate 12 04/18/2024 8:55 AM CDT Oxygen Saturation 98% 04/18/2024 8:55 AM CDT Inhaled Oxygen Concentration - - Weight 54.4 kg (120 lb) 04/18/2024 8:55 AM CDT Height 165.1 cm (5' 5 ) 04/18/2024 8:55 AM CDT Body Mass Index 19.97 04/18/2024 8:55 AM CDT Plan of Treatment Health Maintenance Due Date Last Done Comments Colorectal Cancer Screening Colonoscopy (10 Years) 1950 Hepatitis C 1969 DTaP, Tdap and Td Vaccines ( 1 - Tdap) 1970 Zoster Vaccines (1 of 2) 2001 Annual Medicare Wellness Visit 02/05/2016 Pneumococcal Vaccine: 65+ Ye ars (1 of 1 - PCV) 02/05/2016 COVID-19 Vaccine ( - 2023-2 5 season) 2024 Influenza Adult (#1) 2024 PHQ-2 (Physician Nelson) 10/03/2024 RSV Immunization or 60+ Years (1 - 1-dose 75+ series) 2026 AAA SCREENING Completed 03/26/2020 Meningococcal B Vaccine Aged Out No l onger eligible based on patient's age to complete this topic Meningococcal Vaccine Aged Out No julisa tremayne eligible based on patient's age to complete this topic RSV Immunizations Under 20 Months Aged Out No longer eligible based on patient's age to complete this topic Medical Devices Implanted Type Area Assembler Latches [employer] Springs Device Identifier Shelf Expiration Date Model / Serial / Lot Mesh Parietex Progrip Rectangle 15cm X 9cm - [id number] Implanted:Qty: 1 on 03/29/2024 by Jorge Garcia MD at [facility] Mesh Left: Abdomen Unique [employer]guides [id number] 08/02/2028 [id number] / / [id number] Procedures Procedure Name Priority Date/Time Associated Diagnosis Comments CT ABD+PEL WO CON Routine 03/26/2020 2:1 3 PM CDT Abdominal pain from Last 3 Months or Most Recently Relevant to Health Maintenance Results * CT ABD+PEL WO CON (03/26/2020 2:13 PM CDT) Anatomical Region Laterality Modality Abdomen Computed Tomogra phy 03/26/2020 3:17 PM CDT Impressions 03/26/2020 3:21 PM CDT IMPRESSION: 1) No acute inflammatory change, abscess nor ascites. 2. Descending and sigmoid colon diverticulosis, no evidence of acute diverticulitis. 3. No evidence of mechanical bowel obstruction nor perforation. 4. No evidence of ureteral stone nor hydronephrosis. Interpreted By: Duncan Giron MD, 03/26/2020 3:17 PM Narrative 03/26/2020 3:21 PM CDT Examination: CT ABD+PEL WO CON Exam time: 03/26/2020 2:13 PM Clinical history: Intermittent abdominal pain Comparison: None Technique: Axial images obtained from level of xiphoid process to pubic symphysis without contrast using low-dose CT technique. Sagittal and coronal reconstruction. Findings: CT ABDOMEN: Visualized portions of the lung bases are unremarkable. The liver is normal in size. No significant focal intrahepatic lesions are demonstrated. No evidence of cholelithiasis nor gallbladder wall thickening. The spleen contains calcified granulomata but is normal in size and otherwise unremarkable. Pancreas and the adrenal glands are unremarkable. No significant acute perirenal inflammatory change or fluid. No renal calcifications are demonstrated. There is no evidence of a ureteral stone nor hydronephrosis on either side. No evidence of renal mass lesion. There is no acute inflammatory change, abscess nor ascites. No evidence of mechanical bowel obstruction nor perforation. No evidence of adenopathy. Atherosclerotic calcific lesions of the abdominal aorta with no evidence of AAA. The IVC is unremarkable. CT PELVIS: Descending and sigmoid colon diverticulosis. No acute inflammatory change, abscess nor ascites. No pelvic mass nor adenopathy. Procedure Note Duncan Giron MD - 03/26/2020 Examination: CT ABD+PEL WO CON Exam time: 03/26/2020 2:13 PM Clinical history: Intermittent abdominal pain Comparison: None Technique: Axial images obtained from level of xiphoid process to pubic symphysis without contrast using low-dose CT technique. Sagittal and coronal reconstruction. Findings: CT ABDOMEN: Visualized portions of the lung bases are unremarkable. The liver is normal in size. No significant focal intrahepatic lesionsare demonstrated. No evidence of cholelithiasis nor gallbladder wall thickening. The spleen contains calcified granulomata but is normal in size and otherwise unremarkable. Pancreas and the adrenal glands areunremarkable. No significant acute perirenal inflammatory change or fluid. No renal calcifications are demonstrated. There is no evidence of a ureteralstone nor hydronephrosis on either side. No evidence of renal mass lesion. There is no acute inflammatory change, abscess nor ascites. No evidenceof mechanical bowel obstruction nor perforation. No evidence of adenopathy. Atherosclerotic calcific lesions of the abdominal aorta with no evidenceof AAA. The IVC is unremarkable. CT PELVIS: Descending and sigmoid colon diverticulosis. No acute inflammatory change, abscess nor ascites. No pelvic mass nor adenopathy. IMPRESSION: 1) No acute inflammatory change, abscess nor ascites. 2. Descending and sigmoid colon diverticulosis, no evidence of acute diverticulitis. 3. No evidence of mechanical bowel obstruction nor perforation. 4. No evidence of ureteral stone nor hydronephrosis. Interpreted By: Duncan Giron MD, 03/26/2020 3:17 PM Benny Reyes MD CT Final Result from Last 3 Months or Most Recently Relevant to Health Maintenance Insurance MEDICARE MEDICAID Advance Directives * Full Code (Latest Code Status on File) Date Activated Date Inactivated Comments 03/20/2018 12:17 AM 03/27/2018 6:20 PM Care Teams Heating And Ventilation Engineer Relationship Specialty Start Date End Date Benny Reyes MD PCP - General FAMILY PRACTICE 03/20/18
--- OUTSIDE RECORDS SUMMARY | 2024-12-25 01:25 | XMS_ITS ---
Author Organization [facility] Address [address] [place] [address] Phone Care Team Providers Care Generation Engineer Name Role Phone Unavailable Unavailable Unavailable Problems Includes: Active, inactive, and resolved Problems All Visits Onset Date Resolved Date Provider Condition S tatus Epilepsy, unsp, not intractable, without status epilepticus 11/25/2015 TEMO A CRANCER D.O. Active Last Documented On 6 9:14AM ; [facility] Gastro-esophageal reflux dis ease without esophagitis 11/25/2015 TEMO A CRANCER D.O. Active Last Documented On 6 9:14AM ; [facility] Essential (primary) hypertension 11/25/[address] CRANCER D.O. Active Last Documented On 6 9:14AM ; [facility] Pure hypercholesterolemia 11/06/2015 TEMO A C RANCER D.O. Active Last Documented On 6 11:15AM ; [facility] ESOPHAGEAL REFLUX 06/24/2014 TEMO A CRANCER D .O. Active Last Documented On 4 2:06PM ; [facility] HYPERTENSION NOS 06/24/2014 TEMO A CRANCER D. O. Active Last Documented On 4 2:06PM ; [facility] Black Or Tarry Stools (Melena) 12/13/2011 SERVANDO BRANHAM DO Active Last Documented On 2 5:43PM ; [facility] Note: Resolved Assessment of Constipation 12/06/2011 SERVANDO GLEZ DO Active Last Documented On 2 4:54PM ; [facility] Note: Unchanged Bright Red Blood Per Rectum 12/06/2011 SERVANDO OROZCOBAIRON DO Active Last Documented On 2 4:54PM ; [facility] Note: Unchanged Plan of Treatment Findings Encounter Date Ordered return to the clinic if condition worsens or new symptoms arise EMERGENCY ROOM FOLLOW UP with TEMO CHAVEZ D.O. 01/28/2015 Last Documented On 5 5:07PM ; [facility] Plan to do an anoscopic exam and rubber band ligate the prolapsing hemorrhoid under MAC anesthesia. The patient will subsequently be scheduled for right inguinal hernia repair RECHECK with SERVANDO BRANHAM DO 12/13/2011 Last Documented On 2 5:44PM ; [facility] Assessments Includes: Assessments for all patient encounters Findings Encounter Date Chronic obstructive pulmonar y disease LIKELY DIAGNOSIS RECHECK with TEMO CHAVEZ D.O. 01/27/2016 Last Documented On 6 12:39PM ; [facility] Benign essential hypertensio n which is stable CHECK UP with TEMO CHAVEZ D.O. 11/25/2015 Last Documented On 6 6:26PM ; [facility] Dysphagia FOOD LODGED SICK VISIT with TEMO ZAPATA D.O. 08/05/2015 Last Documented On 5 7:03PM ; [facility] Pain in forearm SICK VISIT with TEMO CHAVEZ D.O. 08/05/2015 Last Documented On 5 7:03PM ; [facility] Allergic rhinitis GENERAL OFFICE VISIT with WALKER CHAVEZ D.O. 2015 Last Documented On 5 12:58PM ; [facility] Benign essential hypertension GENERAL OF FICE VISIT with TEMO CHAVEZ D.O. 2015 Last Documented On 5 12:58PM ; [facility] Hyponatremia which is resolved GENERAL O FFICE VISIT with TEMO CHAVEZ D.O. 2015 Last Documented On 5 12:58PM ; [facility] Acute bronchitis EMERGENCY ROOM FOLLOW UP with Aditi CHAVEZ D.O. 01/28/2015 Last Documented On 5 5:07PM ; [facility] Diabetes mellitus EMERGENCY ROOM FOLLOW UP with TEMO Mcneil.Kiya 01/28/2015 Last Documented On 5 5:07PM ; [facility] Benign essential hypertension 6 MONTH CHECK with TEMO CHAVEZ D.O. 10/29/2014 Last Documented On 5 7:07PM ; [facility] Chronic reflux esophagitis 6 MONTH CHECK with BECKIE CHAVEZ D.O. 10/29/2014 Last Documented On 5 7:07PM ; [facility] Epilepsy and recurrent seizu res which is well-controlled NO SEIZURES FOR YEARS 6 MONTH CHECK with TEMO CHAVEZ D.O. 10/29/2014 Last Documented On 5 7:07PM ; [facility] Prolapsing internal hemorrho id and right inguinal hernia RECHECK with SERVANDO BRANHAM DO 12/13/2011 Last Documented On 2 5:44PM ; [facility] Blood in the stool RECHECK with SERVANDO Ren 12/13/2011 Last Documented On 2 5:44PM ; [facility] Assess constipation CONSULTATION with SERVANDO RUSH DO 12/06/2011 Last Documented On 2 4:55PM ; [facility] Blood in the stool CONSULTATION with SERVANDO WADDELL DO 12/06/2011 Last Documented On 2 4:55PM ; [facility] Bright red blood per rectum CONSULTATION with JENNIFER BRANHAM DO 12/06/2011 Last Documented On 2 4:55PM ; [facility] Medical Equipment - Implanted Devices Includes: Current and historical Devices No Medical Equipment Recorded Medications Includes: Current and historical Medications Current Medications (continue as prescribed) Flonase Allergy Relief 50 MCG/ACT Suspension 01/27/2016 Provider: TEMO Woodruff Diagnosis: Allergic rhiniti s, unspecified 2 sprays each nostril once daily Last Documented On 01/27/2016 3:36PM By [place] ; [facility] Loratadine 10 MG OR TABS 06/24/2014 Provider: Diagnosis: Last Documented On 06/24/2014 2:04PM By [place] ; [facility] EpiPen 2-Twan 0.3 MG/0.3ML IJ CORTNEY 04/15/2014 Provide r: MELISSA EMERY MD Diagnosis: Last Documented On 08/05/2015 10:33AM By [place] ; [facility] Past Medications on file Symbicort 80-4.5 MCG/ACT Aerosol 05/04/2016 - 06/03/2016 Provider: TEMO CHAVEZ D.O. Diagnosis: Emphysema, unspe cified inhale 2 puffs every 12 hour s-rinse mouth after use Last Documented On 05/04/2016 3:04PM By [place] ; [facility] Phenytoin Sodium Extended 100 MG Capsule, conventional 05/04/2016 - 06/03/2016 Provider: TEMO CHAVEZ D.O. Diagnosis: Epilepsy, unsp, not intractable, without status epilepticus TAKE 1 CAPSULE BY MOUTH 3 TIMES A DAY Last Documented On 05/04/2016 3:21PM By [place] ; [facility] Losartan Potassium 25 MG Tablet 05/04/2016 - 06/03/2016 Provider: TEMO CHAVEZ D.O. Diagnosis: Essential (prima ry) hypertension TAKE 1 TABLET BY MOUTH DAILY *PLEASE SPLIT* Last Documented On 05/04/2016 3:05PM By [place] ; [facility] RaNITidine HCl 150 MG Tablet 05/04/2016 - 06/03/2016 Provider: TEMO CHAVEZ D.O. Diagnosis: Gastro-esophagea l reflux disease without esophagitis TAKE 1 TABLET BY MOUTH TWICE A DAY *PLEASE SPLIT* Last Documented On 05/04/2016 3:05PM By [place] ; [facility] Symbicort 80-4.5 MCG/ACT Aerosol 03/10/2016 - 05/04/2016 Provider: TEMO CHAVEZ D.O. Diagnosis: Emphysema, unspe cified 2 puffs BID TWO INHALATIONS EVERY 12 HOURS, RINSE MOUTH AFTER USE Last Documented On 05/04/2016 2:58PM By [place] ; [facility] Symbicort 80-4.5 MCG/ACT IN AERO 02/12/2016 - 03/10/2016 Provider: TEMO CHAVEZ D.O. Diagnosis: Emphysema, unspe cified TWO INHALATIONS EVERY 12 BORIS RS, RINSE MOUTH AFTER USE Last Documented On 03/10/2016 5:31PM By [place] ; [facility] PredniSONE 10 MG Tablet 01/23/2016 - 01/29/2016 Provid er: TEMO CHAVEZ D.O. Diagnosis: 3 po qd x 2 days, 2 po qd x 2 days, 1 po qd x 2 days Last Documented On 01/23/2016 12:04PM By [place] ; [facility] Albuterol Sulfate (2.5 MG/3ML) 0.083% Nebulization solution 01/23/2016 - 02/22/2016 Provider: TEMO CHAVEZ D.O. Diagnosis: Other pneumonia, unspecified organism as directed USE VIA NEBULIZER QID PRN Last Documented On 01/23/2016 12:04PM By AL[place] ; [facility] ProAir HFA 108 (90 Base) MCG/ACT Aerosol Solution 01/23/2016 - 02/22/2016 Provider: TEMO CHAVEZ D.O. Diagnosis: Other pneumonia, unspecified organism ONE PUFF QID PRN Last Documented On 01/23/2016 12:04PM By [place] ; [facility] Levaquin 500 MG Tablet 01/23/2016 - 01/27/2016 Provider: TEMO CHAVEZ D.O. Diagnosis: Other pneumonia, unspecified organism One tablet daily Last Documented On 01/27/2016 2:58PM By [place] ; [facility] Levaquin 500 MG Tablet 01/13/2016 - 01/23/2016 Provider: TEMO CHAVEZ D.O. Diagnosis: Other pneumonia, unspecified organism One tablet daily Last Documented On 01/23/2016 11:53AM By AL[place] ; [facility] Albuterol Sulfate (2.5 MG/3M L) 0.083% Nebulization solution 01/13/2016 - 01/13/2016 Provider: Diagnosis: USE VIA NEBULIZER QID Last Documented On 01/13/2016 11:04AM By [place] ; [facility] Albuterol Sulfate (2.5 MG/3ML) 0.083% Nebulization solution 01/13/2016 - 01/23/2016 Provider: TEMO CHAVEZ D.O. Diagnosis: Other pneumonia, unspecified organism as directed USE VIA NEBULIZER QID PRN Last Documented On 01/23/2016 11:52AM By AL[place] ; [facility] ProAir HFA 108 (90 Base) MCG/ACT Aerosol, solution 01/13/2016 - 01/23/2016 Provider: TEMO CHAVEZ D.O. Diagnosis: Other pneumonia, unspecified organism ONE PUFF QID PRN Last Documented On 01/23/2016 11:52AM By [place] ; [facility] Phenytoin Sodium Extended 100 MG Capsule 11/25/2015 - 05/04/2016 Provider: TEMO CHAVEZ D.O. Diagnosis: Epilepsy, unsp, not intractable, without status epilepticus *TID - One tablet three time s a day One tablet three times a day Last Documented On 05/04/2016 3:03PM By AL[place] ; [facility] Losartan Potassium 25 MG Tablet 11/25/2015 - 05/04/2016 Provider: TEMO CHAVEZ D.O. Diagnosis: Essential (prima ry) hypertension *1 dly - One tablet daily TA KE 1 TABLET BY MOUTH DAILY Last Documented On 05/04/2016 3:02PM By AL[place] ; [facility] Ranitidine HCl 150 MG Tablet 11/25/2015 - 05/04/2016 Provider: TEMO CHAVEZ D.O. Diagnosis: Gastro-esophagea l reflux disease without esophagitis *BID - One tablet twice a da y One tablet twice a day PLEASE SPLIT TABS Last Documented On 05/04/2016 3:00PM By AL[place]S ; [facility] raNITIdine HCl 150 MG OR TABS 11/06/2015 - 11/25/2015 Provider: TEMO CHAVEZ D.O. Diagnosis: PLEASE SPLIT TABS NEEDS AP PT PRIOR TO ADDITIONAL REFILLS Last Documented On 11/25/2015 9:14AM By [place] ; [facility] Losartan Potassium 25 MG OR TABS 11/06/2015 - 11/25/2015 Provider: TEMO CHAVEZ D.O. Diagnosis: TAKE 1 TABLET BY MOUTH DAILY NEEDS APPT PRIOR TO ADDITIONAL REFILLS Last Documented On 11/25/2015 9:14AM By [place] ; [facility] raNITIdine HCl 150 MG OR TABS 08/07/2015 - 11/06/2015 Provider: TEMO CHAVEZ D.O. Diagnosis: PLEASE SPLIT TABS Last Documented On 11/06/2015 8:54AM By [place] ; [facility] Phenytoin Sodium Extended 100 MG Capsule 08/07/2015 - 08/07/2015 Provider: Diagnosis: Last Documented On 08/07/2015 1:20PM By [place] ; [facility] Phenytoin Sodium Extended 10 0 MG OR CAPS 08/07/2015 - 11/25/2015 Provider: TEMO CHAVEZ D.O. Diagnosis: Last Documented On 11/25/2015 9:14AM By [place] ; [facility] Losartan Potassium 25 MG OR TABS 08/07/2015 - 11/06/2015 Provider: TEMO CHAVEZ D.O. Diagnosis: TAKE 1 TABLET BY MOUTH DAILY Last Documented On 11/06/2015 8:55AM By [place] ; [facility] Phenytoin Sodium Extended 10 0 MG Capsule 06/10/2015 - 08/05/2015 Provider: TEMO CHAVEZ D.O. Diagnosis: TAKE 1 CAPSULE BY MOUTH 3 TIMES A DAY Last Documented On 08/05/2015 10:31AM By [place] ; [facility] Losartan Potassium 25 MG Tablet 06/10/2015 - 08/07/2015 Provider: TEMO CHAVEZ D.O. Diagnosis: TAKE 1 TABLET BY MOUTH DAILY Last Documented On 08/07/2015 1:19PM By [place] ; [facility] raNITIdine HCl 150 MG OR TABS 05/08/2015 - 08/07/2015 Provider: TEMO CHAVEZ D.O. Diagnosis: PLEASE SPLIT TABS Last Documented On 08/07/2015 1:18PM By [place] ; [facility] Cipro 250 MG OR TABS 01/22/2015 - 01/13/2016 Provider: DOMONIQUE LOCKETT [facility] Diagnosis: Last Documented On 01/13/2016 9:55AM By [place] ; [facility] Phenytoin Sodium Extended 100 MG OR CAPS 10/29/2014 - 08/05/2015 Provider: Diagnosis: Last Documented On 08/05/2015 10:32AM By [place] ; [facility] Losartan Potassium 25 MG OR TABS 10/29/2014 - 06/10/2015 Provider: TEMO CHAVEZ D.O. Diagnosis: ONE TABLET DAILY Last Documented On 06/10/2015 10:27AM By TEMO CHAVEZ DO ; [facility] raNITIdine HCl 150 MG OR TABS 10/29/2014 - 05/08/2015 Provider: TEMO CHAVEZ D.O. Diagnosis: PLEASE SPLIT TABS Last Documented On 05/08/2015 9:32AM By [place] ; [facility] Phenytoin Sodium Extended 10 0 MG OR CAPS 10/29/2014 - 06/10/2015 Provider: TEMO CHAVEZ D.O. Diagnosis: Last Documented On 06/10/2015 10:25AM By TEMO CHAVEZ DO ; [facility] Dilantin 100 MG OR CAPS 04/15/2014 - 11/25/2015 Provid er: MELISSA EMERY MD Diagnosis: take one capsule TID Last Documented On 11/25/2015 9:10AM By [place] ; [facility] Losartan Potassium 25 MG OR TABS 04/15/2014 - 10/29/19 15 Provider: MELISSA EMERY MD Diagnosis: ONE TABLET DAILY Last Documented On 10/29/2014 2:04PM By TEMO CHAVEZ DO ; [facility] raNITIdine HCl 150 MG OR TABS 04/15/2014 - 10/29/2014 Provider: MELISSA EMERY MD Diagnosis: PLEASE SPLIT TABS Last Documented On 10/29/2014 2:04PM By TEMO CHAVEZ DO ; [facility] Dilantin 100 MG OR CAPS 09/17/2013 - 04/15/2014 Provid er: MELISSA EMERY MD Diagnosis: take one capsule TID Last Documented On 04/15/2014 3:41PM By MELISSA EMERY MD ; [facility] raNITIdine HCl 150 MG OR TABS 09/17/2013 - 04/15/2014 Provider: MELISSA EMERY MD Diagnosis: PLEASE SPLIT TABS Last Documented On 04/15/2014 3:40PM By MELISSA EMERY MD ; [facility] Losartan Potassium 25 MG OR TABS 09/17/2013 - 04/15/20 14 Provider: MELISSA EMERY MD Diagnosis: ONE TABLET DAILY Last Documented On 04/15/2014 3:40PM By MELISSA EMERY MD ; [facility] Losartan Potassium 25 MG OR TABS 09/03/2013 - 09/17/20 13 Provider: MELISSA EMERY MD Diagnosis: ONE TABLET DAILY Last Documented On 09/17/2013 3:16PM By MELISSA EMERY MD ; [facility] Dilantin 100 MG OR CAPS 08/09/2013 - 09/17/2013 Provid er: MELISSA EMERY MD Diagnosis: take one capsule TID Last Documented On 09/17/2013 3:15PM By MELISSA EMERY MD ; [facility] raNITIdine HCl 150 MG OR TABS 08/08/2013 - 09/17/2013 Provider: MELISSA EMERY MD Diagnosis: Last Documented On 09/17/2013 3:14PM By MELISSA EMERY MD ; [facility] raNITIdine HCl 150 MG OR TABS 04/19/2013 - 08/08/2013 Provider: MELISSA EMERY MD Diagnosis: Last Documented On 08/08/2013 4:39PM By [place] ; [facility] Dilantin 100 MG OR CAPS 04/19/2013 - 08/09/2013 Provid er: MELISSA EMERY MD Diagnosis: take one capsule TID Last Documented On 08/09/2013 10:40AM By MELISSA EMERY MD ; [facility] Losartan Potassium 25 MG OR TABS 02/06/2013 - 09/03/20 13 Provider: MELISSA EMERY MD Diagnosis: ONE TABLET DAILY Last Documented On 09/03/2013 4:08PM By [place] ; [facility] raNITIdine HCl 150 MG OR TABS 01/08/2013 - 04/19/2013 Provider: MELISSA EMERY MD Diagnosis: Last Documented On 04/19/2013 3:19PM By [place] ; [facility] raNITIdine HCl 150 MG OR TABS 11/07/2012 - 01/08/2013 Provider: MELISSA EMERY MD Diagnosis: Last Documented On 01/08/2013 4:12PM By MELISSA EMERY MD ; [facility] Losartan Potassium 25 MG OR TABS 11/07/2012 - 02/06/20 13 Provider: MELISSA EMERY MD Diagnosis: Last Documented On 11/07/2012 3:26PM By MELISSA EMERY MD ; [facility] Dilantin 100 MG OR CAPS 10/13/2012 - 04/19/2013 Provid er: MELISSA EMERY MD Diagnosis: take one capsule TID Last Documented On 04/19/2013 3:20PM By [place] ; [facility] Losartan Potassium 25 MG OR TABS 08/09/2012 - 11/07/19 13 Provider: MELISSA EMERY MD Diagnosis: Last Documented On 11/07/2012 3:26PM By MELISSA EMERY MD ; [facility] raNITIdine HCl 150 MG OR TABS 06/07/2012 - 11/07/2012 Provider: MELISSA EMERY MD Diagnosis: Last Documented On 11/07/2012 3:27PM By MELISSA EMERY MD ; [facility] Losartan Potassium 25 MG OR TABS 06/06/2012 - 08/09/20 12 Provider: MELISSA EMERY MD Diagnosis: Last Documented On 08/09/2012 11:07AM By CHARLEY QUINTANA LPN ; [facility] Dilantin 100 MG OR CAPS 06/06/2012 - 09/04/2012 Provid er: MELISSA EMERY MD Diagnosis: Last Documented On 06/06/2012 3:40PM By MELISSA EMERY MD ; [facility] raNITIdine HCl 150 MG OR TABS 06/06/2012 - 09/04/2012 Provider: MELISSA EMERY MD Diagnosis: Last Documented On 06/06/2012 3:40PM By MELISSA EMERY MD ; [facility] Medications Administered Includes: Administered Medications in patient's chart Medications Administered Diagnosis Date Pro vider DEPO-Medrol 40 MG/ML IJ SUSP 2015 TEMO CHAVEZ D.O. IM RIGHT GLUT Last Documented On 5 10:36AM By [place] ; [facility] Results Includes: Results from 12/26/2023 through 12/25/2024 No Results Recorded For Specified Dates History of Present Illness History of Present Illness not supported for this document type No History of Present Illness Recorded Social History Description Last Updated Smoking status : Former smoker 5 Last Documented On 5 12:58PM ; [facility] Not a current smoker 12/13/2011 Last Documented On 2 5:44PM ; [facility] Procedures and Surgical History Surgical History Last Updated History of inguinal hernia repair 2011 Last Documented On 2 5:44PM ; [facility] History of unilateral repair of inguinal hernia 12/13/2011 Last Documented On 2 5:44PM ; [facility] Medical History Includes: Medical History in patient's chart Description Last Updated History of seizure disorder 12/13/2011 Last Documented On 2 5:44PM ; [facility] Taking medication 12/13/2011 Last Documented On 2 5:44PM ; [facility] History of constipation 12/13/2011 Last Documented On 2 5:44PM ; [facility] History of esophageal reflux 12/13/2011 Last Documented On 2 5:44PM ; [facility] History of essential hypertension 2011 Last Documented On 2 5:44PM ; [facility] History of hemorrhoids 12/13/2011 Last Documented On 2 5:44PM ; [facility] History of hypertension 12/13/2011 Last Documented On 2 5:44PM ; [facility] History of hypothyroidism 12/13/2011 Last Documented On 2 5:44PM ; [facility] History of thyroid disorder 12/13/2011 Last Documented On 2 5:44PM ; [facility] Family History Includes: Family History in patient's chart Description Last Updated Family history reviewed - unchanged sinc e last visit 11/25/2015 Last Documented On 6 6:26PM ; [facility] Fraternal history of cancer PASSED AT AG E 58 FROM THROAT CANCER 08/05/2015 Last Documented On 5 7:03PM ; [facility] Maternal history of colon cancer PASSED AT AGE 89 FROM COLON CANCER 08/05/2015 Last Documented On 5 7:03PM ; [facility] Family history unchanged 12/13/2011 Last Documented On 2 5:44PM ; [facility] Review of Systems Review of Systems not supported for this document type No Review of Systems Recorded Mental Status No Mental Status Recorded Functional Status No Functional Status Recorded Physical Exam Physical Exam not supported for this document type No Physical Exam Recorded Allergies Includes: Active, inactive, and resolved Allergies Substance Type Reaction Onset Date Resolved Date Statu s Penicillin V Potassium Allergy Skin Rash es / Eruption of skin, Hives / Urticaria 12/06/2011 Active Last Documented On 6 3:00PM ; [facility] Nalfon Allergy 12/06/2011 Active Last Documented On 6 3:00PM ; [facility] Lisinopril Allergy BAD DREAMS 12/06/2011 Active Last Documented On 6 3:00PM ; [facility] BEES Allergy 06/24/2014 Active Last Documented On 6 3:00PM ; [facility] Azithromycin Dihydrate Allergy Nausea, V omiting, Diarrhea / Diarrheal disorder 12/06/2011 Active Last Documented On 6 3:00PM ; [facility] Clinical Notes Includes: Signed Clinical Notes starting from 10/22/2022 No Clinical Notes Recorded
[2024-12-25 12:57] VITALS: BP 164/71; PULSE 77; RESP 18; TEMP 36.1; O2SAT 100; BMI 20.7
[2024-12-25] MEDS: LACTATED RINGERS 1,000 ML 150 ML IV CONT (13:07)
--- NOTE | 2024-12-25 13:49 | P.PNAN_ITS ---
Anes - Initial Pre Proc Eval Procedure: Operation Date: 12/25/24 14:30 Proposed Procedures p Esophagogastroduodenoscopy - Warner Bailon MD Date/Time: 12/25/24 13:49 Surgeon: Warner Bailon MD Pre Op Diagnosis: dysphagia Patient Data Age: 74 Gender: M Height: 1.65 m Weight: 56.6 kg Last Vital Signs Temp 36.1 C L 12/25/24 12:57 Pulse 77 12/25/24 12:57 Resp 18 12/25/24 12:57 BP 164/71 H 12/25/24 12:57 Pulse Ox 100 12/25/24 12:57 O2 Del Method Room Air 12/25/24 12:57 Allergies Allergy/AdvReac Type Severity Reaction Status Date / Time Penicillins Allergy Intermediate Rash Verified 12/25/24 12:56 bee venom protein (honey Allergy Anaphylaxis Verified 12/25/24 12:56 bee) (bees) fenoprofen (From Nalfon) Allergy Rash Verified 12/25/24 12:56 Home Medications ?Medication ?Instructions ?Recorded ?Confirmed ?Type famotidine 40 mg tablet 40 mg PO DAILY 04/23/20 12/25/24 History omeprazole 20 mg capsule,delayed 20 mg PO DAILY PRN Heartburn 04/23/20 12/13/24 History release phenytoin sodium extended 100 mg 100 mg PO EVERY OTHER DAY 04/23/20 12/25/24 History capsule aspirin 81 mg capsule 81 mg PO DAILY 09/27/23 12/25/24 History olmesartan 20 mg tablet 20 mg PO DAILY 09/27/23 12/25/24 History Patient hx anesthesia problems: none Family hx anesthesia problems: none Results Review: All pre-operative results and documents have been reviewed as part of the pre- operative evaluation. PMFSH Past Medical History Medical History Esophageal stricture LLQ abdominal pain Dysphagia Food impaction of esophagus Seizure Gastroesophageal reflux disease Surgical History Surgical History (Updated 12/25/24 @ 13:49 by Jer Pruitt MD) History of esophagogastroduodenoscopy (EGD) Social History Social History Smoking status: Never smoker Smokeless tobacco user: chewing tobacco Alcohol intake: current Drinks per week: 1 Alcohol use details: Beer Substance use: never Substance use type: does not use Living arrangements: with family Spiritual care concerns: No Anes - Eval Final PreProcedure Day of Procedure 12/25/24 13:49 Patient weight: normal Heart: regular rate and rhythm Lungs: clear to auscultation Airway: Mallampati scale class II Neurological: alert and oriented Last oral intake: >/= 8 hours ASA classification: III Emergent: no Anesthetic plan: proceed Anesthesia type and monitoring: general GIVS and standard monitoring Results Review: All pre-operative results and documents have been reviewed as part of the pre- operative evaluation. Informed Consent: The patient's anesthetic plan and its attendant risks and benefits were discussed with the patient/family/POA. Questions were solicited and answers provided to the satisfaction of the patient/family/POA.
--- NOTE | 2024-12-25 13:54 | PM.HPGS ---
History of Present Illness History of Present Illness Consent: Risks, benefits, and alternatives have been discussed and questions answered. Patient agrees to proceed with procedure. Chief complaint: dysphagia Narrative: Venkatesh Frey Jr. is a 74 year old male with known history of esophageal stricture, last time dilated 06/2024 which helped, time to do another one. Review of Systems Review of Systems: All systems reviewed & are unremarkable except as noted in HPI and below PMFSH Past Medical History Medical History Esophageal stricture LLQ abdominal pain Dysphagia Food impaction of esophagus Seizure Gastroesophageal reflux disease Surgical History Surgical History (Updated 12/25/24 @ 13:49 by Jer Pruitt MD) History of esophagogastroduodenoscopy (EGD) Social History Social History Smoking status: Never smoker Smokeless tobacco user: chewing tobacco Alcohol intake: current Drinks per week: 1 Alcohol use details: Beer Substance use: never Substance use type: does not use Living arrangements: with family Spiritual care concerns: No Meds Home Medications and Allergies Home Medications ?Medication ?Instructions ?Recorded ?Confirmed ?Type famotidine 40 mg tablet 40 mg PO DAILY 04/23/20 12/25/24 History omeprazole 20 mg capsule,delayed 20 mg PO DAILY PRN Heartburn 04/23/20 12/13/24 History release phenytoin sodium extended 100 mg 100 mg PO EVERY OTHER DAY 04/23/20 12/25/24 History capsule aspirin 81 mg capsule 81 mg PO DAILY 09/27/23 12/25/24 History olmesartan 20 mg tablet 20 mg PO DAILY 09/27/23 12/25/24 History Allergies Allergy/AdvReac Type Severity Reaction Status Date / Time Penicillins Allergy Intermediate Rash Verified 12/25/24 12:56 bee venom protein (honey Allergy Anaphylaxis Verified 12/25/24 12:56 bee) (bees) fenoprofen (From [place]) Allergy Rash Verified 12/25/24 12:56 Vital Signs Vital Signs - 24 hr 12/25/24 12:57 Temperature 97 F L Pulse Rate 77 Respiratory Rate 18 Blood Pressure 164/71 H Pulse Oximetry 100 Oxygen Delivery Room Air Exam Const: General: comfortable and no acute distress HENMT: Face/Nose/Sinus: Normal nares present Eyes: General: appearance normal, both eyes and all related structures Neck: Neck: no JVD Resp: Auscultation: clear to auscultation bilaterally Cardio: Rate: regular rate Rhythm: regular rhythm GI: Inspection: non-distended GI Palp: Yes Soft to palpation Skin: General skin exam: normal color Neuro: Speech: normal speech Extrem: General: normal to inspection Psych: Mental Status: mental status grossly normal Assessment and Plan Assessment and plan (1) Dysphagia: Code(s): R13.10 - Dysphagia, unspecified Status: Acute Assessment and Plan: egd (2) Esophageal stricture: Code(s): K22.2 - Esophageal obstruction Status: Acute
[2024-12-25 14:02] VITALS: BP 116/58; PULSE 72; RESP 20; O2SAT 99
[2024-12-25 14:12] VITALS: BP 110/53; PULSE 60; RESP 17; O2SAT 100
[2024-12-25 14:22] VITALS: BP 142/79; PULSE 69; RESP 17; O2SAT 100
== END 2024-12-25 14:31 | disposition home or self-care (01) ==
PROVIDERS: PCP Family Medicine; Referring Provider Internal Medicine Gastroenterology; Visit Provider Internal Medicine Gastroenterology
PROC: 0DJ08ZZ Inspection of Upper Intestinal Tract, Via Natural or Artificial Opening Endoscopic (ICD-10-PCS; CPT 43249; principal; 2024-12-25 14:30)
DX: K22.2 Esophageal obstruction (principal); K44.9 Diaphragmatic hernia without obstruction or gangrene; F17.220 Nicotine dependence, chewing tobacco, uncomplicated
CPT/HCPCS: 43249; C1726; J2003; J2704; J7120